=== PATIENT | male | born 1955 | race Caucasian/White ===

== ENCOUNTER 2022-11-26 16:26 | Inpatient (IN) | payer MEDICARE, BC ==
[2022-11-26] MEDS ORDERED: Dextrose 5% in Water 1,000 ML IV PRN (19:27)
[2022-11-26] MEDS ORDERED: Dextrose 50% Abboject 50 ML SYRINGE SLOW IVP PRN (19:27)
[2022-11-26] MEDS ORDERED: Ondansetron PF 4 MG/2 ML Vial IVP PRN (19:47)
[2022-11-26] MEDS ORDERED: Ondansetron ODT 4 MG TAB PO PRN (19:47)
[2022-11-26] MEDS ORDERED: Senokot S 8.6-50 MG TAB PO PRN (19:47)
[2022-11-26] MEDS ORDERED: niCARdipine 25 MG in Sodium Chloride 0.9% 250 ML 250 ML IVPB PRN (20:00)
[2022-11-26] MEDS ORDERED: Electrolyte Replacement Protocol 1 EACH FS ONE (20:18)
[2022-11-26] MEDS ORDERED: Magnesium 2 GM/50 ML(in water) 2 GM in Premix Bag 1 BAG IVPB SCH (20:30)
[2022-11-26] MEDS ORDERED: Sodium Chloride 0.9% 1,000 ML IV SCH (20:30)
[2022-11-26] MEDS ORDERED: Electrolyte Replacement Protocol FS PRN (20:45)
[2022-11-26] MEDS: methylPREDNISolone Sod Succ 1 GM, Admixture Fee 1 EACH in Sodium Chloride 0.9% 250 ML 2... IVPB SCH ×2 (21:20→21:53)
[2022-11-27] MEDS: Cefepime 2 GM in Sodium Chloride 0.9% 100 ML IVPB SCH ×2 (01:38→12:53)
[2022-11-27] MEDS: Vancomycin 1 GM in Premix Bag 1 BAG IVPB SCH ×2 (01:44→14:00)
[2022-11-27 03:57] LABS: Bacteria/HPF None Seen HPF (None Seen); Bilirubin Negative (Negative); Blood, Urine 3+ (Negative); CAUTI Indications for Culture Alt mental st,lethar; Clarity Clear (Clear); Glucose, Urine (Dipstick) Greater than 1000 mg/dL (Negative); Ketone, Urine 20 mg/dL (Negative); Leukocyte Negative Leu/uL (Negative); Nitrite Negative (Negative); Protein, Urine (Dipstick) 10 mg/dL (Neg-Trace); RBC/HPF Greater than 50 HPF (0-3); Specific Gravity, Urine 1.017 (1.002-1.036); Squamous Epithelial None Seen HPF (0-3); Urobilinogen Normal mg/dL (Less than 2); WBC/HPF 0-3 HPF (0-3); pH, Urine 5.5 (5.0-9.0)
[2022-11-27 04:02] LABS: Urine Culture Reflex No No
[2022-11-27 04:30] LABS: ALT (SGPT) 17 U/L (8-55); AST (SGOT) 25 U/L (5-34); Albumin 3.6 g/dL (3.4-4.8); Alkaline Phosphatase 63 U/L (40-110); Anion Gap 14 mmol/L (10-20); BUN (Urea Nitrogen) 13 mg/dL (8.4-25.7); Bilirubin, Direct 1.5 mg/dL (0.1-0.3); Bilirubin, Total 4.6 mg/dL (0.2-1.2); Calc. Creatinine Clearance 72 mL/min (70-130); Calcium 9.1 mg/dL (7.8-10.44); Carbon Dioxide 21 mmol/L (23-31); Chloride 103 mmol/L (98-107); Estimated GFR 96; Globulin 4.4 g/dL (2.4-3.5); Glucose 258 mg/dL (80-115); Magnesium 2.2 mg/dL (1.6-2.6); Potassium 3.7 mmol/L (3.5-5.1); Sodium 134 mmol/L (136-145)
[2022-11-27 04:39] LABS: #Lymphocytes 0.5 thou/uL (1.20-3.40); #Monocytes 0.3 thou/uL (0.11-0.59); #Neutrophils 6.6 thou/uL (1.40-6.50); %Lymphocytes 7.2 % (21.0-51.0); %Monocytes 3.9 % (0.0-10.0); %Neutrophils 88.8 % (42.0-75.0); Hemoglobin 12.4 g/dL (14.0-18.0); Mean Corpuscular HGB CONC 34.3 g/dL (32.0-36.0); Mean Corpuscular Hemoglobin 29.8 pg (27.0-31.0); Mean Corpuscular Volume 86.8 fl (78.0-98.0); Mean Platelet Volume 9.2 fL (7.4-10.4); Platelet Count 63 10x3/uL (130-400); Platelet Morphology Comment Appears Decreased; RBC Distribution Width 11.7 % (11.5-14.5); RBC Morphology Normal; Red Blood Cell (RBC) Count 4.15 mill/uL (4.70-6.10); White Blood Cell (WBC) Count 7.5 10x3/uL (4.8-10.8)
[2022-11-27] MEDS: HumaLOG 300 UNITS/3 ML VIAL SC PRN ×4 (06:11→20:29)
[2022-11-27] MEDS ORDERED: ADMIXTURE FEE IVPB SCH (09:00)
[2022-11-27] MEDS ORDERED: PRIVIGEN IVPB SCH (09:00)
[2022-11-27] MEDS ORDERED: OCTAGAM 10% (10 GM/100 ML VIAL) IVPB SCH (09:00)
[2022-11-27] MEDS: Pantoprazole 40 MG VIAL IVP SCH (09:31)
[2022-11-27] MEDS: PRIVIGEN IVPB SCH (18:00)
[2022-11-27] MEDS: ADMIXTURE FEE IVPB SCH (18:00)
[2022-11-27] MEDS: methylPREDNISolone Sod Succ 1 GM, Admixture Fee 1 EACH in Sodium Chloride 0.9% 250 ML 2... IVPB SCH (20:25)
[2022-11-27 21:33] LABS: #Basophils 0.2 thou/uL (0.0-0.2); #Lymphocytes 0.6 thou/uL (1.20-3.40); #Monocytes 1.1 thou/uL (0.11-0.59); #Neutrophils 9.9 thou/uL (1.40-6.50); %Basophils 1.4 % (0.0-1.0); %Eosinophils 0.1 % (0.0-10.0); %Lymphocytes 4.7 % (21.0-51.0); %Monocytes 9.2 % (0.0-10.0); %Neutrophils 84.6 % (42.0-75.0); Hemoglobin 12.3 g/dL (14.0-18.0); Mean Corpuscular HGB CONC 34.6 g/dL (32.0-36.0); Mean Corpuscular Hemoglobin 31.2 pg (27.0-31.0); Mean Corpuscular Volume 89.9 fl (78.0-98.0); Mean Platelet Volume 10.2 fL (7.4-10.4); Platelet Count 73 10x3/uL (130-400); RBC Distribution Width 11.9 % (11.5-14.5); Red Blood Cell (RBC) Count 3.93 mill/uL (4.70-6.10); White Blood Cell (WBC) Count 11.6 10x3/uL (4.8-10.8)
[2022-11-28] MEDS: Cefepime 2 GM in Sodium Chloride 0.9% 100 ML IVPB SCH ×2 (01:16→13:26)
[2022-11-28 02:42] LABS: ALT (SGPT) 22 U/L (8-55); AST (SGOT) 38 U/L (5-34); Albumin 3.1 g/dL (3.4-4.8); Alkaline Phosphatase 55 U/L (40-110); Anion Gap 16 mmol/L (10-20); BUN (Urea Nitrogen) 16 mg/dL (8.4-25.7); Bilirubin, Total 2.6 mg/dL (0.2-1.2); Calc. Creatinine Clearance 78 mL/min (70-130); Calcium 8.2 mg/dL (7.8-10.44); Carbon Dioxide 18 mmol/L (23-31); Chloride 107 mmol/L (98-107); Estimated GFR 98; Globulin 4.1 g/dL (2.4-3.5); Glucose 166 mg/dL (80-115); Potassium 3.6 mmol/L (3.5-5.1); Protein, Total 7.2 g/dL (5.8-8.1); Sodium 137 mmol/L (136-145)
[2022-11-28] MEDS: Vancomycin 1 GM in Premix Bag 1 BAG IVPB SCH (02:58)
[2022-11-28 03:10] LABS: HIV (1/2) Antibody/Antigen Non-Reactive (NonReactive); HIV 1/2 INDEX 0.41 S/CO (<1.00)
[2022-11-28 03:42] LABS: Vancomycin, Trough 12.3 ug/mL
[2022-11-28] MEDS ORDERED: VANCOMYCIN 1.25 GM/250 ML BAG 1.25 GM in Premix Bag 1 BAG IVPB SCH ×2 (05:00→14:00)
[2022-11-28 06:43] LABS: #Lymphocytes 0.6 thou/uL (1.20-3.40); #Monocytes 0.4 thou/uL (0.11-0.59); #Neutrophils 8.1 thou/uL (1.40-6.50); %Eosinophils 0.1 % (0.0-10.0); %Lymphocytes 6.2 % (21.0-51.0); %Monocytes 4.9 % (0.0-10.0); %Neutrophils 88.8 % (42.0-75.0); Hemoglobin 12.1 g/dL (14.0-18.0); Mean Corpuscular HGB CONC 34.3 g/dL (32.0-36.0); Mean Corpuscular Hemoglobin 30.9 pg (27.0-31.0); Mean Corpuscular Volume 90.1 fl (78.0-98.0); Mean Platelet Volume 11.3 fL (7.4-10.4); Platelet Count 65 10x3/uL (130-400); RBC Distribution Width 11.8 % (11.5-14.5); Red Blood Cell (RBC) Count 3.93 mill/uL (4.70-6.10); White Blood Cell (WBC) Count 9.1 10x3/uL (4.8-10.8)
[2022-11-28] MEDS: HumaLOG 300 UNITS/3 ML VIAL SC PRN ×3 (08:14→17:52)
[2022-11-28] MEDS: Pantoprazole 40 MG VIAL IVP SCH (08:15)
[2022-11-28] MEDS: Guaifenesin DM 100-10/5 ML UDCUP PO PRN ×2 (08:15→15:46)
[2022-11-28] MEDS: PRIVIGEN IVPB SCH (21:05)
[2022-11-28] MEDS: ADMIXTURE FEE IVPB SCH (21:05)
[2022-11-28] MEDS: methylPREDNISolone Sod Succ 1 GM, Admixture Fee 1 EACH in Sodium Chloride 0.9% 250 ML 2... IVPB SCH (21:05)
[2022-11-29] MEDS: Guaifenesin DM 100-10/5 ML UDCUP PO PRN ×2 (00:04→11:42)
[2022-11-29] MEDS: HumaLOG 300 UNITS/3 ML VIAL SC PRN ×2 (00:11→06:49)
[2022-11-29 07:09] LABS: #Lymphocytes 0.4 thou/uL (1.20-3.40); #Monocytes 0.2 thou/uL (0.11-0.59); #Neutrophils 6.9 thou/uL (1.40-6.50); %Basophils 0.5 % (0.0-1.0); %Eosinophils 0.2 % (0.0-10.0); %Lymphocytes 4.7 % (21.0-51.0); %Monocytes 3.2 % (0.0-10.0); %Neutrophils 91.3 % (42.0-75.0); Hemoglobin 10.6 g/dL (14.0-18.0); Mean Corpuscular HGB CONC 35.3 g/dL (32.0-36.0); Mean Corpuscular Hemoglobin 30.9 pg (27.0-31.0); Mean Corpuscular Volume 87.5 fl (78.0-98.0); Mean Platelet Volume 11.2 fL (7.4-10.4); Platelet Count 50 10x3/uL (130-400); RBC Distribution Width 11.5 % (11.5-14.5); Red Blood Cell (RBC) Count 3.44 mill/uL (4.70-6.10); White Blood Cell (WBC) Count 7.5 10x3/uL (4.8-10.8)
[2022-11-29 07:23] LABS: ALT (SGPT) 35 U/L (8-55); AST (SGOT) 44 U/L (5-34); Alkaline Phosphatase 48 U/L (40-110); Anion Gap 11 mmol/L (10-20); BUN (Urea Nitrogen) 25 mg/dL (8.4-25.7); Bilirubin, Total 1.5 mg/dL (0.2-1.2); Calc. Creatinine Clearance 79 mL/min (70-130); Calcium 8.1 mg/dL (7.8-10.44); Carbon Dioxide 20 mmol/L (23-31); Chloride 109 mmol/L (98-107); Estimated GFR 99; Globulin 5.5 g/dL (2.4-3.5); Glucose 179 mg/dL (80-115); Potassium 3.5 mmol/L (3.5-5.1); Protein, Total 8.5 g/dL (5.8-8.1); Sodium 136 mmol/L (136-145)
[2022-11-29] MEDS ORDERED: Potassium Chloride 20 MEQ TAB PO SCH (08:00)
[2022-11-29] MEDS: Carvedilol 25 MG TAB PO SCH (08:54)
[2022-11-29] MEDS: Pantoprazole 40 MG VIAL IVP SCH (08:55)
[2022-11-29] MEDS: methylPREDNISolone Sod Succ 1 GM, Admixture Fee 1 EACH in Sodium Chloride 0.9% 250 ML 2... IVPB SCH (20:51)
[2022-11-30 07:07] LABS: #Lymphocytes 0.4 thou/uL (1.20-3.40); #Monocytes 0.2 thou/uL (0.11-0.59); #Neutrophils 3.9 thou/uL (1.40-6.50); %Basophils 0.3 % (0.0-1.0); %Lymphocytes 8.3 % (21.0-51.0); %Monocytes 3.4 % (0.0-10.0); Hemoglobin 11.3 g/dL (14.0-18.0); Mean Corpuscular HGB CONC 34.1 g/dL (32.0-36.0); Mean Corpuscular Volume 88.1 fl (78.0-98.0); Mean Platelet Volume 11.4 fL (7.4-10.4); Platelet Count 26 10x3/uL (130-400); RBC Distribution Width 11.6 % (11.5-14.5); Red Blood Cell (RBC) Count 3.78 mill/uL (4.70-6.10); White Blood Cell (WBC) Count 4.4 10x3/uL (4.8-10.8)
[2022-11-30 07:19] LABS: ALT (SGPT) 40 U/L (8-55); AST (SGOT) 33 U/L (5-34); Alkaline Phosphatase 44 U/L (40-110); Anion Gap 9 mmol/L (10-20); BUN (Urea Nitrogen) 34 mg/dL (8.4-25.7); Bilirubin, Total 1.7 mg/dL (0.2-1.2); Calc. Creatinine Clearance 82 mL/min (70-130); Calcium 8.3 mg/dL (7.8-10.44); Carbon Dioxide 24 mmol/L (23-31); Chloride 109 mmol/L (98-107); Estimated GFR 100; Globulin 5.1 g/dL (2.4-3.5); Glucose 216 mg/dL (80-115); Potassium 3.9 mmol/L (3.5-5.1); Protein, Total 8.1 g/dL (5.8-8.1); Sodium 138 mmol/L (136-145)
[2022-11-30] MEDS: HumaLOG 300 UNITS/3 ML VIAL SC PRN ×2 (07:57→18:34)
[2022-11-30] MEDS ORDERED: Magnesium 2 GM/50 ML(in water) 2 GM in Premix Bag 1 BAG IVPB SCH (09:00)
[2022-11-30] MEDS: Carvedilol 25 MG TAB PO SCH (09:13)
[2022-11-30] MEDS: Pantoprazole 40 MG VIAL IVP SCH (09:13)
[2022-11-30 17:00] LABS: Hemoglobin 11.7 g/dL (14.0-18.0); Mean Corpuscular HGB CONC 34.2 g/dL (32.0-36.0); Mean Corpuscular Volume 87.8 fl (78.0-98.0); Platelet Count 20 10x3/uL (130-400); RBC Distribution Width 11.5 % (11.5-14.5); White Blood Cell (WBC) Count 4.4 10x3/uL (4.8-10.8)
[2022-11-30] MEDS: Rosuvastatin 20 MG TAB PO SCH (21:52)
[2022-12-01 01:16] LABS: #Lymphocytes 0.4 thou/uL (1.20-3.40); #Monocytes 0.7 thou/uL (0.11-0.59); #Neutrophils 7.2 thou/uL (1.40-6.50); %Basophils 0.2 % (0.0-1.0); %Lymphocytes 5.1 % (21.0-51.0); %Monocytes 8.4 % (0.0-10.0); %Neutrophils 86.3 % (42.0-75.0); Hemoglobin 12.2 g/dL (14.0-18.0); Mean Corpuscular HGB CONC 36.8 g/dL (32.0-36.0); Mean Corpuscular Hemoglobin 32.4 pg (27.0-31.0); Mean Corpuscular Volume 88.1 fl (78.0-98.0); Mean Platelet Volume 10.1 fL (7.4-10.4); Platelet Count 36 10x3/uL (130-400); RBC Distribution Width 11.4 % (11.5-14.5); Red Blood Cell (RBC) Count 3.78 mill/uL (4.70-6.10); White Blood Cell (WBC) Count 8.3 10x3/uL (4.8-10.8)
[2022-12-01] MEDS: HumaLOG 300 UNITS/3 ML VIAL SC PRN ×2 (06:03→12:37)
[2022-12-01 07:12] LABS: #Lymphocytes 0.5 thou/uL (1.20-3.40); #Monocytes 0.6 thou/uL (0.11-0.59); #Neutrophils 6.1 thou/uL (1.40-6.50); %Lymphocytes 7.1 % (21.0-51.0); %Monocytes 7.9 % (0.0-10.0); %Neutrophils 84.9 % (42.0-75.0); Hemoglobin 11.7 g/dL (14.0-18.0); Mean Corpuscular HGB CONC 34.1 g/dL (32.0-36.0); Mean Corpuscular Hemoglobin 29.9 pg (27.0-31.0); Mean Corpuscular Volume 87.8 fl (78.0-98.0); Mean Platelet Volume 12.2 fL (7.4-10.4); Platelet Count 25 10x3/uL (130-400); RBC Distribution Width 11.5 % (11.5-14.5); White Blood Cell (WBC) Count 7.2 10x3/uL (4.8-10.8)
[2022-12-01 07:26] LABS: ALT (SGPT) 32 U/L (8-55); AST (SGOT) 22 U/L (5-34); Alkaline Phosphatase 44 U/L (40-110); Anion Gap 11 mmol/L (10-20); BUN (Urea Nitrogen) 35 mg/dL (8.4-25.7); Bilirubin, Total 1.6 mg/dL (0.2-1.2); Calc. Creatinine Clearance 93 mL/min (70-130); Calcium 8.2 mg/dL (7.8-10.44); Carbon Dioxide 25 mmol/L (23-31); Chloride 106 mmol/L (98-107); Estimated GFR 104; Globulin 4.8 g/dL (2.4-3.5); Glucose 177 mg/dL (80-115); Magnesium 2.2 mg/dL (1.6-2.6); Potassium 3.5 mmol/L (3.5-5.1); Protein, Total 7.8 g/dL (5.8-8.1); Sodium 138 mmol/L (136-145)
[2022-12-01] MEDS ORDERED: Tamsulosin HCl 0.4 MG CAP PO SCH (09:00)
[2022-12-01] MEDS ORDERED: Non-Formulary Item 1 EACH (Vortioxetine Hydrobromide [Trintellix] 20 MG Tablet) PO SCH (09:00)
[2022-12-01] MEDS ORDERED: Aripiprazole 10 MG TAB PO SCH ×2 (09:00)
[2022-12-01] MEDS: Carvedilol 25 MG TAB PO SCH (10:42)
[2022-12-01] MEDS ORDERED: Potassium Chloride 20 MEQ TAB PO SCH (12:00)
[2022-12-01] MEDS ORDERED: Amlodipine 5 MG TAB PO SCH ×2 (18:00)
[2022-12-01] MEDS: Rosuvastatin 20 MG TAB PO SCH (21:53)
[2022-12-02 06:31] LABS: #Monocytes 1.4 thou/uL (0.11-0.59); %Basophils 0.1 % (0.0-1.0); %Eosinophils 0.2 % (0.0-10.0); %Lymphocytes 8.2 % (21.0-51.0); %Monocytes 11.1 % (0.0-10.0); %Neutrophils 80.4 % (42.0-75.0); Hemoglobin 14.5 g/dL (14.0-18.0); Mean Corpuscular HGB CONC 34.1 g/dL (32.0-36.0); Mean Corpuscular Hemoglobin 29.6 pg (27.0-31.0); Mean Corpuscular Volume 86.9 fl (78.0-98.0); Mean Platelet Volume 15.5 fL (7.4-10.4); Platelet Count 6 10x3/uL (130-400); RBC Distribution Width 11.8 % (11.5-14.5); Red Blood Cell (RBC) Count 4.89 mill/uL (4.70-6.10); White Blood Cell (WBC) Count 12.4 10x3/uL (4.8-10.8)
[2022-12-02 06:38] LABS: ALT (SGPT) 30 U/L (8-55); AST (SGOT) 29 U/L (5-34); Albumin 3.1 g/dL (3.4-4.8); Alkaline Phosphatase 48 U/L (40-110); Anion Gap 10 mmol/L (10-20); BUN (Urea Nitrogen) 25 mg/dL (8.4-25.7); Bilirubin, Total 2.1 mg/dL (0.2-1.2); Calc. Creatinine Clearance 91 mL/min (70-130); Calcium 8.2 mg/dL (7.8-10.44); Carbon Dioxide 25 mmol/L (23-31); Chloride 103 mmol/L (98-107); Estimated GFR 103; Globulin 4.7 g/dL (2.4-3.5); Glucose 164 mg/dL (80-115); Potassium 3.5 mmol/L (3.5-5.1); Protein, Total 7.8 g/dL (5.8-8.1); Sodium 134 mmol/L (136-145)
[2022-12-02] MEDS: Carvedilol 25 MG TAB PO SCH (07:54)
[2022-12-02] MEDS ORDERED: hydrALAZINE 10 MG TAB PO PRN (07:55)
[2022-12-02] MEDS: NIFEdipine XL 60 MG TAB PO SCH (08:43)
[2022-12-02] MEDS ORDERED: Losartan 25 MG TAB PO SCH (09:00)
[2022-12-02] MEDS ORDERED: Potassium Chloride 20 MEQ TAB PO SCH (09:00)
[2022-12-02] MEDS ORDERED: NIFEdipine XL 60 MG TAB PO SCH (09:00)
[2022-12-02] MEDS ORDERED: Dexamethasone 4 MG TAB PO SCH (10:30)
[2022-12-02 13:55] LABS: #Lymphocytes 0.7 thou/uL (1.20-3.40); #Monocytes 0.4 thou/uL (0.11-0.59); #Neutrophils 10.2 thou/uL (1.40-6.50); %Basophils 0.1 % (0.0-1.0); %Eosinophils 0.2 % (0.0-10.0); %Lymphocytes 6.1 % (21.0-51.0); %Monocytes 3.8 % (0.0-10.0); %Neutrophils 89.9 % (42.0-75.0); Mean Corpuscular HGB CONC 33.5 g/dL (32.0-36.0); Mean Corpuscular Hemoglobin 28.7 pg (27.0-31.0); Mean Corpuscular Volume 85.5 fl (78.0-98.0); Mean Platelet Volume 9.9 fL (7.4-10.4); Platelet Count 41 10x3/uL (130-400); RBC Distribution Width 11.9 % (11.5-14.5); Red Blood Cell (RBC) Count 4.87 mill/uL (4.70-6.10); White Blood Cell (WBC) Count 11.3 10x3/uL (4.8-10.8)
[2022-12-02] MEDS: Rosuvastatin 20 MG TAB PO SCH (20:39)
[2022-12-03] MEDS: HumaLOG 300 UNITS/3 ML VIAL SC PRN ×4 (00:46→18:20)
[2022-12-03] MEDS: NIFEdipine XL 60 MG TAB PO SCH (08:29)
[2022-12-03] MEDS: Dexamethasone 4 MG TAB PO SCH (08:29)
[2022-12-03] MEDS: Carvedilol 25 MG TAB PO SCH (08:29)
[2022-12-03] MEDS: Acetaminophen 325 MG TAB PO PRN ×2 (08:30→20:31)
[2022-12-03 09:07] LABS: Anion Gap 12 mmol/L (10-20); BUN (Urea Nitrogen) 31 mg/dL (8.4-25.7); Calc. Creatinine Clearance 80 mL/min (70-130); Calcium 8.5 mg/dL (7.8-10.44); Carbon Dioxide 24 mmol/L (23-31); Chloride 101 mmol/L (98-107); Estimated GFR 99; Glucose 170 mg/dL (80-115); Phosphorus 2.7 mg/dL (2.3-4.7); Sodium 133 mmol/L (136-145)
[2022-12-03 09:15] LABS: #Lymphocytes 0.9 thou/uL (1.20-3.40); #Monocytes 1.1 thou/uL (0.11-0.59); #Neutrophils 9.7 thou/uL (1.40-6.50); %Basophils 0.1 % (0.0-1.0); %Eosinophils 0.1 % (0.0-10.0); %Lymphocytes 7.5 % (21.0-51.0); %Monocytes 9.3 % (0.0-10.0); Hemoglobin 14.9 g/dL (14.0-18.0); Mean Corpuscular Hemoglobin 29.3 pg (27.0-31.0); Mean Corpuscular Volume 86.1 fl (78.0-98.0); Mean Platelet Volume 15.6 fL (7.4-10.4); Platelet Count 8 10x3/uL (130-400); RBC Distribution Width 12.2 % (11.5-14.5); Red Blood Cell (RBC) Count 5.08 mill/uL (4.70-6.10); White Blood Cell (WBC) Count 11.7 10x3/uL (4.8-10.8)
[2022-12-03] MEDS ORDERED: Magnesium 2 GM/50 ML(in water) 2 GM in Premix Bag 1 BAG IVPB SCH (09:45)
[2022-12-03] MEDS ORDERED: Aripiprazole 10 MG TAB PO SCH (10:30)
[2022-12-03] MEDS ORDERED: ROMIPLOSTIM SQ SCH (12:00)
[2022-12-03] MEDS ORDERED: STERILE WATER SQ SCH (12:00)
[2022-12-03 17:27] LABS: Bacteria/HPF None Seen HPF (None Seen); Bilirubin Negative (Negative); Blood, Urine 3+ (Negative); CAUTI Indications for Culture Alt mental st,lethar; Clarity Clear (Clear); Glucose, Urine (Dipstick) 200 mg/dL (Negative); Ketone, Urine Trace mg/dL (Negative); Leukocyte Negative Leu/uL (Negative); Nitrite Negative (Negative); Protein, Urine (Dipstick) 20 mg/dL (Neg-Trace); RBC/HPF 21-50 HPF (0-3); Specific Gravity, Urine 1.023 (1.002-1.036); Squamous Epithelial None Seen HPF (0-3); Urobilinogen Normal mg/dL (Less than 2)
[2022-12-03 17:31] LABS: Urine Culture Reflex No No
[2022-12-03] MEDS: Rosuvastatin 20 MG TAB PO SCH (20:31)
[2022-12-04 06:40] LABS: #Monocytes 1.2 thou/uL (0.11-0.59); #Neutrophils 10.3 thou/uL (1.40-6.50); %Basophils 0.3 % (0.0-1.0); %Eosinophils 0.1 % (0.0-10.0); %Monocytes 9.5 % (0.0-10.0); %Neutrophils 82.1 % (42.0-75.0); Hemoglobin 13.2 g/dL (14.0-18.0); Mean Corpuscular HGB CONC 33.9 g/dL (32.0-36.0); Mean Corpuscular Hemoglobin 29.2 pg (27.0-31.0); Mean Corpuscular Volume 86.1 fl (78.0-98.0); Mean Platelet Volume 16.2 fL (7.4-10.4); Platelet Count 6 10x3/uL (130-400); RBC Distribution Width 12.2 % (11.5-14.5); Red Blood Cell (RBC) Count 4.52 mill/uL (4.70-6.10); White Blood Cell (WBC) Count 12.5 10x3/uL (4.8-10.8)
[2022-12-04 06:57] LABS: Anion Gap 9 mmol/L (10-20); BUN (Urea Nitrogen) 34 mg/dL (8.4-25.7); Calc. Creatinine Clearance 83 mL/min (70-130); Calcium 8.1 mg/dL (7.8-10.44); Carbon Dioxide 23 mmol/L (23-31); Chloride 104 mmol/L (98-107); Estimated GFR 100; Glucose 146 mg/dL (80-115); Potassium 4.1 mmol/L (3.5-5.1); Sodium 132 mmol/L (136-145)
[2022-12-04] MEDS: Dexamethasone 4 MG TAB PO SCH (11:59)
[2022-12-04] MEDS: Carvedilol 25 MG TAB PO SCH ×3 (12:00→17:52)
[2022-12-04] MEDS: Aripiprazole 10 MG TAB PO SCH (12:00)
[2022-12-04] MEDS ORDERED: Cefepime 2 GM in Sodium Chloride 0.9% 100 ML IVPB SCH (16:00)
[2022-12-04] MEDS: Acetaminophen 325 MG TAB PO PRN (16:34)
[2022-12-04] MEDS ORDERED: hydrALAZINE 20 MG/ML VIAL SLOW IVP SCH (16:45)
[2022-12-04] MEDS ORDERED: Acetaminophen 650 MG Suppository PR PRN (16:45)
[2022-12-04] MEDS: NIFEdipine XL 30 MG TAB PO SCH (17:52)
[2022-12-04 18:25] LABS: #Lymphocytes 0.6 thou/uL (1.20-3.40); #Monocytes 0.3 thou/uL (0.11-0.59); #Neutrophils 12.9 thou/uL (1.40-6.50); %Basophils 0.1 % (0.0-1.0); %Eosinophils 0.1 % (0.0-10.0); %Lymphocytes 4.5 % (21.0-51.0); %Monocytes 2.2 % (0.0-10.0); %Neutrophils 93.2 % (42.0-75.0); Hemoglobin 13.9 g/dL (14.0-18.0); Mean Corpuscular HGB CONC 35.3 g/dL (32.0-36.0); Mean Corpuscular Hemoglobin 29.6 pg (27.0-31.0); Mean Corpuscular Volume 83.7 fl (78.0-98.0); Mean Platelet Volume 15.1 fL (7.4-10.4); Platelet Count 10 10x3/uL (130-400); RBC Distribution Width 12.4 % (11.5-14.5); Red Blood Cell (RBC) Count 4.69 mill/uL (4.70-6.10); White Blood Cell (WBC) Count 13.8 10x3/uL (4.8-10.8)
[2022-12-04] MEDS: Rosuvastatin 20 MG TAB PO SCH (21:04)
[2022-12-04] MEDS: Doxycycline 100 MG in Sodium Chloride 0.9% 100 ML IVPB SCH (21:07)
[2022-12-04] MEDS: metroNIDAZOLE 500 MG in Premix Bag 1 BAG IVPB SCH (22:48)
[2022-12-05] MEDS: Cefepime 2 GM in Sodium Chloride 0.9% 100 ML IVPB SCH ×2 (04:04→16:49)
[2022-12-05] MEDS: metroNIDAZOLE 500 MG in Premix Bag 1 BAG IVPB SCH ×2 (05:30→16:47)
[2022-12-05 06:22] LABS: #Lymphocytes 0.7 thou/uL (1.20-3.40); #Monocytes 1.3 thou/uL (0.11-0.59); #Neutrophils 8.9 thou/uL (1.40-6.50); %Basophils 0.3 % (0.0-1.0); %Lymphocytes 6.1 % (21.0-51.0); %Monocytes 11.9 % (0.0-10.0); %Neutrophils 81.7 % (42.0-75.0); ALT (SGPT) 27 U/L (8-55); AST (SGOT) 27 U/L (5-34); Albumin 3.5 g/dL (3.4-4.8); Alkaline Phosphatase 55 U/L (40-110); Anion Gap 11 mmol/L (10-20); BUN (Urea Nitrogen) 29 mg/dL (8.4-25.7); Bilirubin, Total 2.3 mg/dL (0.2-1.2); Calc. Creatinine Clearance 86 mL/min (70-130); Calcium 8.3 mg/dL (7.8-10.44); Carbon Dioxide 19 mmol/L (23-31); Chloride 106 mmol/L (98-107); Estimated GFR 101; Globulin 4.3 g/dL (2.4-3.5); Glucose 141 mg/dL (80-115); Hemoglobin 13.9 g/dL (14.0-18.0); Large Platelets SLIGHT; MDiff Complete? YES; Mean Corpuscular HGB CONC 35.1 g/dL (32.0-36.0); Mean Corpuscular Hemoglobin 29.8 pg (27.0-31.0); Mean Corpuscular Volume 84.8 fl (78.0-98.0); Mean Platelet Volume 18.9 fL (7.4-10.4); Platelet Count 2 10x3/uL (130-400); Platelet Morphology Comment Appears Decreased; Potassium 4.4 mmol/L (3.5-5.1); Protein, Total 7.8 g/dL (5.8-8.1); RBC Distribution Width 12.5 % (11.5-14.5); Red Blood Cell (RBC) Count 4.67 mill/uL (4.70-6.10); Sodium 132 mmol/L (136-145); White Blood Cell (WBC) Count 10.9 10x3/uL (4.8-10.8)
[2022-12-05] MEDS ORDERED: OCTAGAM 10% (10 GM/100 ML VIAL) IVPB SCH (09:00)
[2022-12-05] MEDS: Carvedilol 25 MG TAB PO SCH (11:27)
[2022-12-05] MEDS: Aripiprazole 10 MG TAB PO SCH (11:27)
[2022-12-05] MEDS: Dexamethasone 4 MG TAB PO SCH (11:27)
[2022-12-05] MEDS: NIFEdipine XL 30 MG TAB PO SCH (11:28)
[2022-12-05] MEDS: Doxycycline 100 MG in Sodium Chloride 0.9% 100 ML IVPB SCH (11:28)
[2022-12-05 12:03] VITALS: BP 153/91
[2022-12-05] MEDS: PRIVIGEN IVPB SCH (14:20)
[2022-12-05] MEDS: ADMIXTURE FEE IVPB SCH (14:20)
[2022-12-05] MEDS: Rosuvastatin 20 MG TAB PO SCH (20:03)
[2022-12-06 04:23] LABS: #Lymphocytes 0.9 thou/uL (1.20-3.40); #Monocytes 1.3 thou/uL (0.11-0.59); #Neutrophils 8.4 thou/uL (1.40-6.50); %Lymphocytes 8.9 % (21.0-51.0); %Monocytes 12.2 % (0.0-10.0); %Neutrophils 78.9 % (42.0-75.0); Hemoglobin 13.1 g/dL (14.0-18.0); Mean Corpuscular HGB CONC 35.8 g/dL (32.0-36.0); Mean Corpuscular Hemoglobin 30.3 pg (27.0-31.0); Mean Corpuscular Volume 84.7 fl (78.0-98.0); Platelet Count 49 10x3/uL (130-400); RBC Distribution Width 12.4 % (11.5-14.5); Red Blood Cell (RBC) Count 4.32 mill/uL (4.70-6.10); White Blood Cell (WBC) Count 10.6 10x3/uL (4.8-10.8)
[2022-12-06] MEDS ORDERED: levETIRAcetam 500 MG/5 ML VIAL SLOW IVP SCH ×3 (12:00→21:00)
[2022-12-06] MEDS: Aripiprazole 10 MG TAB PO SCH (12:59)
[2022-12-06] MEDS: NIFEdipine XL 30 MG TAB PO SCH (12:59)
[2022-12-06] MEDS: Carvedilol 25 MG TAB PO SCH (12:59)
[2022-12-06 13:08] LABS: Hemoglobin 15.4 g/dL (14.0-18.0); Mean Corpuscular HGB CONC 33.7 g/dL (32.0-36.0); Mean Corpuscular Volume 86.1 fl (78.0-98.0); Mean Platelet Volume 11.9 fL (7.4-10.4); Platelet Count 81 10x3/uL (130-400); RBC Distribution Width 12.9 % (11.5-14.5); Red Blood Cell (RBC) Count 5.32 mill/uL (4.70-6.10); White Blood Cell (WBC) Count 16.9 10x3/uL (4.8-10.8)
[2022-12-06] MEDS: ADMIXTURE FEE IVPB SCH (13:08)
[2022-12-06] MEDS: PRIVIGEN IVPB SCH (13:08)
[2022-12-06] MEDS ORDERED: Lorazepam 2 MG/ML VIAL SLOW IVP SCH (13:45)
[2022-12-06] MEDS ORDERED: Lacosamide 400 MG in Sodium Chloride 0.9% 50 ML IVPB SCH (13:45)
[2022-12-06] MEDS ORDERED: Sodium Chloride 0.9% 1,000 ML IV SCH (14:15)
[2022-12-06 14:35] VITALS: BMI 17.4
[2022-12-06 14:43] LABS: Anion Gap 13 mmol/L (10-20); BUN (Urea Nitrogen) 31 mg/dL (8.4-25.7); CK (CPK) 131 U/L (30-200); Calc. Creatinine Clearance 62 mL/min (70-130); Calcium 8.4 mg/dL (7.8-10.44); Carbon Dioxide 19 mmol/L (23-31); Chloride 101 mmol/L (98-107); Estimated GFR 96; Glucose 201 mg/dL (80-115); Magnesium 1.9 mg/dL (1.6-2.6); Potassium 3.8 mmol/L (3.5-5.1); Sodium 129 mmol/L (136-145)
[2022-12-06] MEDS ORDERED: Lorazepam 2 MG/ML VIAL SLOW IVP PRN (19:08)
[2022-12-06] MEDS: Rosuvastatin 20 MG TAB PO SCH (20:39)
[2022-12-06] MEDS ORDERED: Magnesium 2 GM/50 ML(in water) 2 GM in Premix Bag 1 BAG IVPB SCH (21:00)
[2022-12-06] MEDS ORDERED: Lacosamide 200 MG in Sodium Chloride 0.9% 50 ML IVPB SCH (21:00)
[2022-12-06 23:00] LABS: SARS-CoV-2 NAA Rapid Test Not Detected (NotDetected)
[2022-12-06 23:41] VITALS: TEMP 97.9
[2022-12-07 16:24] LABS: ANA Symphony (Qualitative) POSITIVE (Negative); ANA Symphony (Quantitative) 4.1 Ratio (< 0.7 Negative); EliA RAS New Method **** NEW METHOD ****; Rheumatoid Factor IgA Antibody 0.9 IU/mL (<14 Negative); Rheumatoid Factor IgM Antibody 0.6 IU/mL (<3.5 Negative); Scleroderma-70 IgG Antibody 2.3 EliAU/mL (<7 Negative); dsDNA IgG Antibody 5.2 IU/mL (<10 Negative)
== END 2022-12-07 00:25 | disposition short-term general hospital (02) | DRG 813 ==
LOC: CCU 16:26 → SURG B 11-28 16:36 → IMCU/EMU 12-05 13:50
PROVIDERS: ADMIT Internal Medicine; ATTEND Internal Medicine
PROC: 6A551Z2 Pheresis of Platelets, Multiple (ICD-10-PCS; principal; 2022-11-26)
PROC: 3E0334Z Introduction of Serum, Toxoid and Vaccine into Peripheral Vein, Percutaneous Approach (ICD-10-PCS; 2022-11-27)
PROC: 07DR3ZX Extraction of Iliac Bone Marrow, Percutaneous Approach, Diagnostic (ICD-10-PCS; 2022-12-02)
PROC: 079T3ZX Drainage of Bone Marrow, Percutaneous Approach, Diagnostic (ICD-10-PCS; 2022-12-02)
PROC: 0DH67UZ Insertion of Feeding Device into Stomach, Via Natural or Artificial Opening (ICD-10-PCS; 2022-12-06)
PROC: 3E0G76Z Introduction of Nutritional Substance into Upper GI, Via Natural or Artificial Opening (ICD-10-PCS; 2022-12-06)
DX: D69.3 Immune thrombocytopenic purpura (principal); I62.00 Nontraumatic subdural hemorrhage, unspecified; G93.6 Cerebral edema; E43 Unspecified severe protein-calorie malnutrition; G93.49 Other encephalopathy; Z68.1 Body mass index [BMI] 19.9 or less, adult; Z20.822 Contact with and (suspected) exposure to COVID-19; K21.9 Gastro-esophageal reflux disease without esophagitis; E83.42 Hypomagnesemia; E11.22 Type 2 diabetes mellitus with diabetic chronic kidney disease; N18.9 Chronic kidney disease, unspecified; I12.9 Hypertensive chronic kidney disease with stage 1 through stage 4 chronic kidney disease, or unspecified chronic kidney disease; F41.9 Anxiety disorder, unspecified; F32.A Depression, unspecified; E80.6 Other disorders of bilirubin metabolism; D72.829 Elevated white blood cell count, unspecified; T38.0X5A Adverse effect of glucocorticoids and synthetic analogues, initial encounter; R56.9 Unspecified convulsions; R33.9 Retention of urine, unspecified; Z79.899 Other long term (current) drug therapy; Z90.49 Acquired absence of other specified parts of digestive tract; Z83.3 Family history of diabetes mellitus; Z88.0 Allergy status to penicillin; Z88.1 Allergy status to other antibiotic agents; Z88.8 Allergy status to other drugs, medicaments and biological substances
CPT/HCPCS: 20225; 36415; 36416; 36430; 70450; 71045; 76700; 76770; 77012; 80048; 80053; 80076; 80202; 81001; 82247; 82550; 83010; 83520; 83605; 83615; 83735; 84100; 84145; 84484; 85025; 85060; 85097; 85384; 85610; 85730; 86038; 86225; 86235; 86850; 86900; 86901; 87040; 87077; 87149; 87389; 88184; 88237; 88264; 88280; 88305; 88311; 88313; 88341; 88342; 93005; 95712; 95816; 95819; 95957; 96365; 96366; 96375; C9113; C9254; J0360; J0692; J1459; J1568; J1815; J1953; J2060; J2796; J2930; J3370; J3370-JW; J3475; J3490; J7050; J8540; P9035; U0002

== ENCOUNTER 2022-12-13 18:04 | Inpatient (IN) | payer MEDICARE, BC ==
[2022-12-13 18:37] LABS: #Eosinphils 0.1 thou/uL (0.0-0.7); #Lymphocytes 1.4 thou/uL (1.20-3.40); #Monocytes 0.6 thou/uL (0.11-0.59); #Neutrophils 4.2 thou/uL (1.40-6.50); %Basophils 0.8 % (0.0-1.0); %Eosinophils 1.2 % (0.0-10.0); %Lymphocytes 21.9 % (21.0-51.0); %Monocytes 8.8 % (0.0-10.0); %Neutrophils 67.4 % (42.0-75.0); Mean Corpuscular HGB CONC 34.4 g/dL (32.0-36.0); Mean Corpuscular Hemoglobin 30.2 pg (27.0-31.0); Mean Corpuscular Volume 87.7 fl (78.0-98.0); Mean Platelet Volume 15.1 fL (7.4-10.4); Platelet Count 11 10x3/uL (130-400); RBC Distribution Width 13.3 % (11.5-14.5); Red Blood Cell (RBC) Count 4.31 mill/uL (4.70-6.10); White Blood Cell (WBC) Count 6.2 10x3/uL (4.8-10.8)
[2022-12-13 18:49] LABS: Prothrombin Time 13.5 sec (12.0-14.7)
[2022-12-13 18:55] LABS: ALT (SGPT) 22 U/L (8-55); AST (SGOT) 24 U/L (5-34); Albumin 3.1 g/dL (3.4-4.8); Alkaline Phosphatase 61 U/L (40-110); Anion Gap 14 mmol/L (10-20); BUN (Urea Nitrogen) 20 mg/dL (8.4-25.7); Bilirubin, Total 0.7 mg/dL (0.2-1.2); CK (CPK) 29 U/L (30-200); Calc. Creatinine Clearance 0 mL/min (70-130); Calcium 8.9 mg/dL (7.8-10.44); Carbon Dioxide 23 mmol/L (23-31); Chloride 100 mmol/L (98-107); Estimated GFR 100; Globulin 4.7 g/dL (2.4-3.5); Glucose 171 mg/dL (80-115); Potassium 4.7 mmol/L (3.5-5.1); Protein, Total 7.8 g/dL (5.8-8.1); Sodium 132 mmol/L (136-145)
[2022-12-13 20:17] LABS: Bilirubin Negative (Negative); Blood, Urine Negative (Negative); Clarity Clear (Clear); Glucose, Urine (Dipstick) Normal (Negative); Ketone, Urine Negative (Negative); Leukocyte Negative Leu/uL (Negative); Nitrite Negative (Negative); Protein, Urine (Dipstick) Negative (Neg-Trace); Specific Gravity, Urine 1.009 (1.002-1.036); Urobilinogen Normal mg/dL (Less than 2)
[2022-12-13] MEDS ORDERED: Dexamethasone 10 MG/ML VIAL ONE (21:07)
[2022-12-13] MEDS ORDERED: OCTAGAM 10% (10 GM/100 ML VIAL) IVPB SCH (21:30)
[2022-12-13] MEDS ORDERED: Ondansetron PF 4 MG/2 ML Vial IVP PRN (21:33)
[2022-12-13] MEDS ORDERED: Acetaminophen 325 MG TAB PO PRN (21:33)
[2022-12-13] MEDS ORDERED: Acetaminophen 650 MG Suppository PR PRN (21:33)
[2022-12-13] MEDS ORDERED: Senokot S 8.6-50 MG TAB PO SCH (22:15)
[2022-12-13] MEDS ORDERED: Fleet Enema 133 ML BOT PR SCH (22:15)
[2022-12-14 00:19] VITALS: BMI 19.5
[2022-12-14] MEDS ORDERED: Dexamethasone Sod Phosphate 40 MG in Sodium Chloride 0.9% 50 ML IVPB SCH ×2 (00:45→21:00)
[2022-12-14] MEDS: PRIVIGEN IVPB SCH (02:09)
[2022-12-14] MEDS: ADMIXTURE FEE IVPB SCH (02:09)
[2022-12-14 02:40] LABS: SARS-CoV-2 NAA Rapid Test Not Detected (NotDetected)
[2022-12-14 07:33] LABS: #Lymphocytes 0.8 thou/uL (1.20-3.40); #Monocytes 0.1 thou/uL (0.11-0.59); #Neutrophils 4.3 thou/uL (1.40-6.50); %Eosinophils 0.2 % (0.0-10.0); %Lymphocytes 14.8 % (21.0-51.0); %Monocytes 1.4 % (0.0-10.0); %Neutrophils 83.6 % (42.0-75.0); Hemoglobin 12.3 g/dL (14.0-18.0); Mean Corpuscular HGB CONC 33.8 g/dL (32.0-36.0); Mean Corpuscular Hemoglobin 29.8 pg (27.0-31.0); Mean Corpuscular Volume 88.3 fl (78.0-98.0); Mean Platelet Volume 10.4 fL (7.4-10.4); Platelet Count 39 10x3/uL (130-400); RBC Distribution Width 13.3 % (11.5-14.5); Red Blood Cell (RBC) Count 4.13 mill/uL (4.70-6.10); White Blood Cell (WBC) Count 5.1 10x3/uL (4.8-10.8)
[2022-12-14 07:35] LABS: Anion Gap 15 mmol/L (10-20); BUN (Urea Nitrogen) 19 mg/dL (8.4-25.7); Calc. Creatinine Clearance 77 mL/min (70-130); Calcium 9.1 mg/dL (7.8-10.44); Carbon Dioxide 22 mmol/L (23-31); Chloride 99 mmol/L (98-107); Estimated GFR 99; Glucose 187 mg/dL (80-115); Potassium 4.5 mmol/L (3.5-5.1); Sodium 131 mmol/L (136-145)
[2022-12-14] MEDS: Senokot S 8.6-50 MG TAB PO SCH ×2 (08:23→20:41)
[2022-12-14] MEDS: ALPRAZolam 0.5 MG TAB PO SCH (08:23)
[2022-12-14] MEDS: Aripiprazole 10 MG TAB PO SCH (08:23)
[2022-12-14] MEDS: Carvedilol 25 MG TAB PO SCH (08:23)
[2022-12-14] MEDS: Tamsulosin HCl 0.4 MG CAP PO SCH (08:24)
[2022-12-14] MEDS: Rosuvastatin 20 MG TAB PO SCH (08:24)
[2022-12-14 08:46] LABS: Reticulocyte Count 1.7 % (0.5-1.5)
[2022-12-14 08:52] LABS: Platelet Count 35 10x3/uL (130-400)
[2022-12-14] MEDS ORDERED: VORTIOXETINE HYDROBROMIDE 20 MG PO SCH (09:00)
[2022-12-14 09:10] LABS: Fibrinogen 511 mg/dL (253-463)
[2022-12-14 09:11] LABS: PTT 28.8 sec (22.9-36.1); Prothrombin Time 13.4 sec (12.0-14.7)
[2022-12-14 09:12] LABS: D-Dimer Test 1.25 *mcg/mL (0.27-0.43)
[2022-12-14] MEDS: ALPRAZolam 1 MG TAB PO SCH (20:41)
[2022-12-15 06:36] LABS: #Lymphocytes 0.6 thou/uL (1.20-3.40); #Monocytes 0.1 thou/uL (0.11-0.59); #Neutrophils 4.8 thou/uL (1.40-6.50); %Basophils 0.3 % (0.0-1.0); %Eosinophils 0.1 % (0.0-10.0); %Lymphocytes 11.1 % (21.0-51.0); %Monocytes 1.8 % (0.0-10.0); %Neutrophils 86.7 % (42.0-75.0); Hemoglobin 11.4 g/dL (14.0-18.0); Mean Corpuscular HGB CONC 34.6 g/dL (32.0-36.0); Mean Corpuscular Hemoglobin 30.6 pg (27.0-31.0); Mean Corpuscular Volume 88.5 fl (78.0-98.0); Mean Platelet Volume 12.2 fL (7.4-10.4); Platelet Count 31 10x3/uL (130-400); RBC Distribution Width 13.7 % (11.5-14.5); Red Blood Cell (RBC) Count 3.72 mill/uL (4.70-6.10); White Blood Cell (WBC) Count 5.5 10x3/uL (4.8-10.8)
[2022-12-15 06:57] LABS: Anion Gap 10 mmol/L (10-20); BUN (Urea Nitrogen) 19 mg/dL (8.4-25.7); Calc. Creatinine Clearance 81 mL/min (70-130); Calcium 8.8 mg/dL (7.8-10.44); Carbon Dioxide 25 mmol/L (23-31); Chloride 100 mmol/L (98-107); Estimated GFR 101; Glucose 182 mg/dL (80-115); Potassium 4.6 mmol/L (3.5-5.1); Sodium 130 mmol/L (136-145)
[2022-12-15] MEDS: ADMIXTURE FEE IVPB SCH (08:53)
[2022-12-15] MEDS: HYDROcodone/Acetaminophen 5/325 mg Tablet PO PRN ×2 (08:53→20:25)
[2022-12-15] MEDS: PRIVIGEN IVPB SCH (08:53)
[2022-12-15] MEDS: ALPRAZolam 0.5 MG TAB PO SCH (08:53)
[2022-12-15] MEDS: Tamsulosin HCl 0.4 MG CAP PO SCH (08:54)
[2022-12-15] MEDS: Carvedilol 25 MG TAB PO SCH (08:54)
[2022-12-15] MEDS: Rosuvastatin 20 MG TAB PO SCH (08:54)
[2022-12-15] MEDS: Senokot S 8.6-50 MG TAB PO SCH ×2 (08:54→20:25)
[2022-12-15] MEDS: Aripiprazole 10 MG TAB PO SCH (08:54)
[2022-12-15] MEDS ORDERED: STERILE WATER SQ SCH (12:00)
[2022-12-15] MEDS ORDERED: ROMIPLOSTIM SQ SCH (12:00)
[2022-12-15 15:05] LABS: Cardiolipin IgA Ab 0.5 APL-U/mL (<14 Negative); Cardiolipin IgG Ab 4.7 GPL-U/mL (<10 Negative); Cardiolipin IgM Ab 2.8 MPL-U/mL (<10 Negative); EliA APS New Method **** NEW METHOD ****; beta-2-Glycoprotein I IgA Ab 0.3 U/mL (<7 Negative); beta-2-Glycoprotein I IgG Ab 4.1 U/mL (<7 Negative)
[2022-12-15 15:27] LABS: beta-2-Glycoprotein I IgM Abs Less than 2.4 U/mL (<7 Negative)
[2022-12-15] MEDS ORDERED: Dexamethasone 4 MG TAB PO SCH (15:30)
[2022-12-15] MEDS: ALPRAZolam 1 MG TAB PO SCH (20:25)
[2022-12-16 07:21] LABS: #Lymphocytes 0.6 thou/uL (1.20-3.40); #Monocytes 0.2 thou/uL (0.11-0.59); #Neutrophils 5.4 thou/uL (1.40-6.50); %Basophils 0.8 % (0.0-1.0); %Eosinophils 0.1 % (0.0-10.0); %Monocytes 2.7 % (0.0-10.0); %Neutrophils 86.5 % (42.0-75.0); Hemoglobin 10.6 g/dL (14.0-18.0); Mean Corpuscular Volume 88.2 fl (78.0-98.0); Mean Platelet Volume 11.6 fL (7.4-10.4); Platelet Count 49 10x3/uL (130-400); RBC Distribution Width 13.5 % (11.5-14.5); Red Blood Cell (RBC) Count 3.54 mill/uL (4.70-6.10); White Blood Cell (WBC) Count 6.3 10x3/uL (4.8-10.8)
[2022-12-16 07:33] LABS: Anion Gap 12 mmol/L (10-20); BUN (Urea Nitrogen) 25 mg/dL (8.4-25.7); Calc. Creatinine Clearance 79 mL/min (70-130); Calcium 8.6 mg/dL (7.8-10.44); Carbon Dioxide 21 mmol/L (23-31); Chloride 97 mmol/L (98-107); Estimated GFR 100; Glucose 283 mg/dL (80-115); Potassium 4.4 mmol/L (3.5-5.1); Sodium 126 mmol/L (136-145)
[2022-12-16] MEDS: Dexamethasone 4 MG TAB PO SCH (08:20)
[2022-12-16] MEDS: Tamsulosin HCl 0.4 MG CAP PO SCH (08:21)
[2022-12-16] MEDS: Aripiprazole 10 MG TAB PO SCH (08:21)
[2022-12-16] MEDS: Carvedilol 25 MG TAB PO SCH (08:21)
[2022-12-16] MEDS: Rosuvastatin 20 MG TAB PO SCH (08:21)
[2022-12-16] MEDS: ALPRAZolam 0.5 MG TAB PO SCH (08:21)
[2022-12-16] MEDS: Senokot S 8.6-50 MG TAB PO SCH ×2 (08:21→19:39)
[2022-12-16] MEDS ORDERED: STERILE WATER SQ SCH (12:00)
[2022-12-16] MEDS ORDERED: ROMIPLOSTIM SQ SCH (12:00)
[2022-12-16] MEDS: ALPRAZolam 1 MG TAB PO SCH (19:38)
[2022-12-16] MEDS: HYDROcodone/Acetaminophen 5/325 mg Tablet PO PRN (19:39)
[2022-12-17 07:51] LABS: #Monocytes 0.6 thou/uL (0.11-0.59); %Eosinophils 0.2 % (0.0-10.0); %Lymphocytes 10.7 % (21.0-51.0); %Monocytes 6.2 % (0.0-10.0); %Neutrophils 82.9 % (42.0-75.0); Hemoglobin 10.6 g/dL (14.0-18.0); Mean Corpuscular HGB CONC 33.1 g/dL (32.0-36.0); Mean Corpuscular Hemoglobin 29.3 pg (27.0-31.0); Mean Corpuscular Volume 88.7 fl (78.0-98.0); Platelet Count 65 10x3/uL (130-400); RBC Distribution Width 13.6 % (11.5-14.5); Red Blood Cell (RBC) Count 3.61 mill/uL (4.70-6.10); White Blood Cell (WBC) Count 9.6 10x3/uL (4.8-10.8)
[2022-12-17 07:59] LABS: Anion Gap 11 mmol/L (10-20); BUN (Urea Nitrogen) 22 mg/dL (8.4-25.7); Calc. Creatinine Clearance 80 mL/min (70-130); Calcium 8.5 mg/dL (7.8-10.44); Carbon Dioxide 24 mmol/L (23-31); Chloride 100 mmol/L (98-107); Estimated GFR 101; Glucose 120 mg/dL (80-115); Potassium 3.9 mmol/L (3.5-5.1); Sodium 131 mmol/L (136-145)
[2022-12-17] MEDS: Tamsulosin HCl 0.4 MG CAP PO SCH (09:11)
[2022-12-17] MEDS: Dexamethasone 4 MG TAB PO SCH (09:11)
[2022-12-17] MEDS: Aripiprazole 10 MG TAB PO SCH (09:11)
[2022-12-17] MEDS: Carvedilol 25 MG TAB PO SCH (09:12)
[2022-12-17] MEDS: Senokot S 8.6-50 MG TAB PO SCH ×2 (09:12→19:52)
[2022-12-17] MEDS: Rosuvastatin 20 MG TAB PO SCH (09:12)
[2022-12-17] MEDS: ALPRAZolam 0.5 MG TAB PO SCH (09:13)
[2022-12-17] MEDS: HYDROcodone/Acetaminophen 5/325 mg Tablet PO PRN (19:52)
[2022-12-17] MEDS: ALPRAZolam 1 MG TAB PO SCH (19:52)
[2022-12-18 07:15] LABS: Hemoglobin 11.7 g/dL (14.0-18.0); Mean Corpuscular HGB CONC 34.4 g/dL (32.0-36.0); Mean Corpuscular Hemoglobin 30.5 pg (27.0-31.0); Mean Corpuscular Volume 88.6 fl (78.0-98.0); RBC Distribution Width 13.8 % (11.5-14.5); Red Blood Cell (RBC) Count 3.82 mill/uL (4.70-6.10)
[2022-12-18] MEDS: Aripiprazole 10 MG TAB PO SCH (08:55)
[2022-12-18] MEDS: Dexamethasone 4 MG TAB PO SCH (08:55)
[2022-12-18] MEDS: Tamsulosin HCl 0.4 MG CAP PO SCH (08:55)
[2022-12-18] MEDS: ALPRAZolam 0.5 MG TAB PO SCH (08:56)
[2022-12-18] MEDS: Senokot S 8.6-50 MG TAB PO SCH ×2 (08:56→20:22)
[2022-12-18] MEDS: Carvedilol 25 MG TAB PO SCH (08:56)
[2022-12-18] MEDS: Rosuvastatin 20 MG TAB PO SCH (08:56)
[2022-12-18 10:13] LABS: #Lymphocytes 1.2 thou/uL (1.20-3.40); #Monocytes 0.8 thou/uL (0.11-0.59); %Eosinophils 0.1 % (0.0-10.0); %Lymphocytes 11.9 % (21.0-51.0); %Monocytes 7.9 % (0.0-10.0); %Neutrophils 79.9 % (42.0-75.0); Platelet Count 91 10x3/uL (130-400); Platelet Morphology Comment Appears Decreased
[2022-12-18] MEDS: ALPRAZolam 1 MG TAB PO SCH (20:22)
[2022-12-18] MEDS: HYDROcodone/Acetaminophen 5/325 mg Tablet PO PRN (20:22)
[2022-12-19 06:56] LABS: #Lymphocytes 1.4 thou/uL (1.20-3.40); #Monocytes 1.5 thou/uL (0.11-0.59); #Neutrophils 10.6 thou/uL (1.40-6.50); %Basophils 0.1 % (0.0-1.0); %Eosinophils 0.2 % (0.0-10.0); %Lymphocytes 10.6 % (21.0-51.0); %Monocytes 10.7 % (0.0-10.0); %Neutrophils 78.4 % (42.0-75.0); Hemoglobin 12.8 g/dL (14.0-18.0); Mean Corpuscular HGB CONC 33.6 g/dL (32.0-36.0); Mean Corpuscular Hemoglobin 29.6 pg (27.0-31.0); Mean Corpuscular Volume 88.1 fl (78.0-98.0); Mean Platelet Volume 9.8 fL (7.4-10.4); Platelet Count 125 10x3/uL (130-400); RBC Distribution Width 13.7 % (11.5-14.5); Red Blood Cell (RBC) Count 4.33 mill/uL (4.70-6.10); White Blood Cell (WBC) Count 13.5 10x3/uL (4.8-10.8)
[2022-12-19] MEDS: ALPRAZolam 0.5 MG TAB PO SCH (09:20)
[2022-12-19] MEDS: Aripiprazole 10 MG TAB PO SCH (09:20)
[2022-12-19] MEDS: Senokot S 8.6-50 MG TAB PO SCH (09:21)
[2022-12-19] MEDS: Dexamethasone 4 MG TAB PO SCH (09:21)
[2022-12-19] MEDS: Rosuvastatin 20 MG TAB PO SCH (09:21)
[2022-12-19] MEDS: Carvedilol 25 MG TAB PO SCH (09:21)
[2022-12-19] MEDS: Tamsulosin HCl 0.4 MG CAP PO SCH (09:21)
[2022-12-19 15:46] VITALS: BP 128/80; TEMP 98.9
== END 2022-12-19 19:50 | DRG 813 ==
LOC: ERS 18:04 → ERHOLD 21:33 → T4-B 12-14 02:43
PROVIDERS: ADMIT Internal Medicine; ATTEND Internal Medicine
PROC: 6A550Z2 Pheresis of Platelets, Single (ICD-10-PCS; principal; 2022-12-13)
PROC: 3E0334Z Introduction of Serum, Toxoid and Vaccine into Peripheral Vein, Percutaneous Approach (ICD-10-PCS; 2022-12-13)
DX: D69.3 Immune thrombocytopenic purpura (principal); E87.1 Hypo-osmolality and hyponatremia; Z20.822 Contact with and (suspected) exposure to COVID-19; G40.909 Epilepsy, unspecified, not intractable, without status epilepticus; E11.9 Type 2 diabetes mellitus without complications; I10 Essential (primary) hypertension; K21.9 Gastro-esophageal reflux disease without esophagitis; K59.00 Constipation, unspecified; N40.1 Benign prostatic hyperplasia with lower urinary tract symptoms; R33.8 Other retention of urine; F41.9 Anxiety disorder, unspecified; E78.5 Hyperlipidemia, unspecified; Z88.1 Allergy status to other antibiotic agents; Z88.0 Allergy status to penicillin; Z88.8 Allergy status to other drugs, medicaments and biological substances; Z87.440 Personal history of urinary (tract) infections; Z79.899 Other long term (current) drug therapy; Z90.49 Acquired absence of other specified parts of digestive tract; Z83.3 Family history of diabetes mellitus
CPT/HCPCS: 36415; 36416; 36430; 51701; 74176; 80048; 80053; 81003; 82140; 82550; 83010; 83615; 84484; 85025; 85046; 85049; 85240; 85250; 85300; 85362; 85379; 85384; 85598; 85610; 85613; 85730; 86146; 86147; 86850; 86880; 86900; 86901; 96374; J1100; J1459; J2796; J8540; P9035; U0002

== ENCOUNTER 2025-06-29 17:01 | Inpatient (IN) | payer MEDICARE ==
[2025-06-29 17:43] LABS: #Basophils 0.03 10x3/uL (0.0-0.2); #Eosinophils Less than 0.03 10x3/uL (0.0-0.7); #Monocytes 1.14 10x3/uL (0.11-0.59); #Neutrophils 11.72 10x3/uL (1.40-6.50); %Basophils 0.2 % (0.0-1.0); %Eosinophils 0.0 % (0.0-10.0); %Lymphocytes 7.2 % (21.0-51.0); %Monocytes 8.1 % (0.0-10.0); %Neutrophils 83.7 % (42.0-75.0); Hematocrit 40.0 % (42.0-52.0); Hemoglobin 13.5 g/dL (14.0-18.0); Mean Corpuscular Hemoglobin 29.6 pg (27.0-31.0); Mean Corpuscular Volume 87.7 fL (78.0-98.0); Platelet Count 156 10x3/uL (130-400); Red Blood Cell (RBC) Count 4.56 mill/uL (4.70-6.10); White Blood Cell (WBC) Count 14.01 10x3/uL (4.8-10.8)
[2025-06-29] MEDS ORDERED: cefTRIAXone (ROCEPHIN) 2 GM VIAL ONE ×2 (18:00→18:05)
[2025-06-29 18:03] LABS: Troponin I 0.015 ng/mL (< 0.028)
[2025-06-29 18:24] LABS: ALT (SGPT) 8 U/L (Less than 45); AST (SGOT) 16 U/L (11-34); Albumin 2.6 g/dL (3.1-4.5); Alkaline Phosphatase 166 U/L (40-110); Anion Gap 21 mmol/L (10-20); BUN (Urea Nitrogen) 39 mg/dL (8.4-25.7); Bilirubin, Total 1.7 mg/dL (0.3-1.2); Calc. Creatinine Clearance 0 mL/min (70-130); Calcium 8.2 mg/dL (7.8-10.44); Carbon Dioxide 17 mmol/L (23-31); Chloride 105 mmol/L (98-107); Globulin 3.2 g/dL (2.4-3.5); Glucose 185 mg/dL (80-115); Potassium 3.5 mmol/L (3.5-5.1); Sodium 139 mmol/L (136-145)
[2025-06-29 18:39] LABS: Specific Gravity, Urine Less/Equal 1.005 (1.005-1.030)
[2025-06-29 18:44] LABS: Protein, Urine (Dipstick) Greater than 600 mg/dL (Neg-Trace)
[2025-06-29 18:45] LABS: Glucose, Urine (Dipstick) Negative (Negative); Leukocyte Large (Negative)
[2025-06-29 18:50] LABS: Bacteria/HPF 2+ HPF (None Seen)
[2025-06-29 18:52] LABS: CAUTI Indications for Culture Alt mental st,lethar; WBC/HPF 21-50 HPF (0-3)
[2025-06-29 18:53] LABS: Urine Culture Reflex Yes Yes
[2025-06-29] MEDS ORDERED: Ondansetron PF 4 MG/2 ML Vial IVP PRN (21:00)
[2025-06-29] MEDS ORDERED: Senokot S 8.6-50 MG TAB PO PRN (21:00)
[2025-06-29] MEDS ORDERED: Electrolyte Replacement Protocol 1 EACH FS PRN (21:00)
[2025-06-30 04:02] LABS: #Basophils Less than 0.03 10x3/uL (0.0-0.2); #Eosinophils Less than 0.03 10x3/uL (0.0-0.7); #Monocytes 0.85 10x3/uL (0.11-0.59); #Neutrophils 7.95 10x3/uL (1.40-6.50); %Basophils 0.2 % (0.0-1.0); %Eosinophils 0.0 % (0.0-10.0); %Lymphocytes 6.6 % (21.0-51.0); %Monocytes 8.9 % (0.0-10.0); %Neutrophils 83.4 % (42.0-75.0); Hematocrit 31.1 % (42.0-52.0); Hemoglobin 10.2 g/dL (14.0-18.0); Mean Corpuscular Hemoglobin 29.5 pg (27.0-31.0); Mean Corpuscular Volume 89.9 fL (78.0-98.0); Platelet Count 91 10x3/uL (130-400); Red Blood Cell (RBC) Count 3.46 mill/uL (4.70-6.10); White Blood Cell (WBC) Count 9.54 10x3/uL (4.8-10.8)
[2025-06-30 04:23] LABS: Burr Cells MODERATE= 6-15 cells HPF (0-1); Platelet Adequacy Comment Platelets Decreased
[2025-06-30 04:32] LABS: Anion Gap 13 mmol/L (10-20); BUN (Urea Nitrogen) 41 mg/dL (8.4-25.7); Calc. Creatinine Clearance 0 mL/min (70-130); Calcium 7.0 mg/dL (7.8-10.44); Carbon Dioxide 17 mmol/L (23-31); Chloride 112 mmol/L (98-107); Glucose 142 mg/dL (80-115); Magnesium 1.4 mg/dL (1.6-2.6); Potassium 3.2 mmol/L (3.5-5.1); Sodium 139 mmol/L (136-145)
[2025-06-30 05:58] VITALS: BMI 23.1
[2025-06-30] MEDS: Magnesium Sulfate In Water 4 GM in Premix 1 BAG IVPB SCH (06:10)
[2025-06-30] MEDS ORDERED: (Vortioxetine Hydrobromide [Trintellix] 20 MG Tablet) PO SCH (09:00)
[2025-06-30] MEDS: Famotidine 20 MG TAB PO SCH (09:07)
[2025-06-30] MEDS: cefTRIAXone\\ROCEPHIN 2 GM in Sodium Chloride 0.9% 100 ML IVPB SCH (17:54)
[2025-06-30] MEDS: PNEUMOC 20-VAL CONJ-DIP CRM/PF 0.5 ML SYRINGE IM ONE (17:54)
[2025-07-02] MEDS: Cholecalciferol (Vitamin D3) 400 UNITS TAB PO SCH (13:34)
[2025-07-02] MEDS: ALPRAZolam 0.25 MG TAB PO PRN (17:37)
[2025-07-02] MEDS: Melatonin 3 MG TAB PO PRN (23:49)
[2025-07-03 11:41] LABS: #Basophils Less than 0.03 10x3/uL (0.0-0.2); #Eosinophils 0.26 10x3/uL (0.0-0.7); #Monocytes 0.82 10x3/uL (0.11-0.59); #Neutrophils 6.69 10x3/uL (1.40-6.50); %Basophils 0.2 % (0.0-1.0); %Eosinophils 2.9 % (0.0-10.0); %Lymphocytes 10.5 % (21.0-51.0); %Monocytes 9.2 % (0.0-10.0); %Neutrophils 74.9 % (42.0-75.0); Hematocrit 30.8 % (42.0-52.0); Hemoglobin 10.2 g/dL (14.0-18.0); Mean Corpuscular Hemoglobin 29.4 pg (27.0-31.0); Mean Corpuscular Volume 88.8 fL (78.0-98.0); Platelet Count 77 10x3/uL (130-400); Red Blood Cell (RBC) Count 3.47 mill/uL (4.70-6.10); White Blood Cell (WBC) Count 8.94 10x3/uL (4.8-10.8)
[2025-07-03 12:17] LABS: ALT (SGPT) 11 U/L (Less than 45); AST (SGOT) 25 U/L (11-34); Albumin 1.8 g/dL (3.1-4.5); Alkaline Phosphatase 107 U/L (40-110); Anion Gap 10 mmol/L (10-20); BUN (Urea Nitrogen) 10 mg/dL (8.4-25.7); Bilirubin, Total 0.6 mg/dL (0.3-1.2); Calc. Creatinine Clearance 91 mL/min (70-130); Calcium 6.9 mg/dL (7.8-10.44); Carbon Dioxide 22 mmol/L (23-31); Chloride 111 mmol/L (98-107); Globulin 2.2 g/dL (2.4-3.5); Glucose 124 mg/dL (80-115); Potassium 2.4 mmol/L (3.5-5.1); Sodium 141 mmol/L (136-145)
[2025-07-04 05:27] LABS: #Basophils 0.03 10x3/uL (0.0-0.2); #Eosinophils 0.35 10x3/uL (0.0-0.7); #Monocytes 0.91 10x3/uL (0.11-0.59); #Neutrophils 7.95 10x3/uL (1.40-6.50); %Basophils 0.3 % (0.0-1.0); %Eosinophils 3.3 % (0.0-10.0); %Lymphocytes 11.3 % (21.0-51.0); %Monocytes 8.5 % (0.0-10.0); %Neutrophils 74.3 % (42.0-75.0); Hematocrit 34.3 % (42.0-52.0); Hemoglobin 11.2 g/dL (14.0-18.0); Mean Corpuscular Hemoglobin 29.1 pg (27.0-31.0); Mean Corpuscular Volume 89.1 fL (78.0-98.0); Platelet Count 98 10x3/uL (130-400); Red Blood Cell (RBC) Count 3.85 mill/uL (4.70-6.10); White Blood Cell (WBC) Count 10.70 10x3/uL (4.8-10.8)
[2025-07-04 05:42] LABS: Anion Gap 10 mmol/L (10-20); BUN (Urea Nitrogen) 7 mg/dL (8.4-25.7); Calc. Creatinine Clearance 96 mL/min (70-130); Calcium 7.1 mg/dL (7.8-10.44); Carbon Dioxide 21 mmol/L (23-31); Chloride 113 mmol/L (98-107); Glucose 148 mg/dL (80-115); Potassium 3.0 mmol/L (3.5-5.1); Sodium 141 mmol/L (136-145)
[2025-07-05] MEDS: Nystatin Powder 15 GM BOT TOP PRN (00:29)
[2025-07-05] MEDS: Acetaminophen 325 MG TAB PO PRN (08:14)
[2025-07-05 11:08] LABS: #Basophils Less than 0.03 10x3/uL (0.0-0.2); #Eosinophils 0.30 10x3/uL (0.0-0.7); #Monocytes 0.78 10x3/uL (0.11-0.59); #Neutrophils 7.70 10x3/uL (1.40-6.50); %Basophils 0.2 % (0.0-1.0); %Eosinophils 3.0 % (0.0-10.0); %Lymphocytes 11.3 % (21.0-51.0); %Monocytes 7.7 % (0.0-10.0); %Neutrophils 76.0 % (42.0-75.0); Hematocrit 32.8 % (42.0-52.0); Hemoglobin 10.7 g/dL (14.0-18.0); Mean Corpuscular Hemoglobin 29.2 pg (27.0-31.0); Mean Corpuscular Volume 89.6 fL (78.0-98.0); Platelet Count 95 10x3/uL (130-400); Red Blood Cell (RBC) Count 3.66 mill/uL (4.70-6.10); White Blood Cell (WBC) Count 10.12 10x3/uL (4.8-10.8)
[2025-07-05 11:39] LABS: Anion Gap 9 mmol/L (10-20); BUN (Urea Nitrogen) 6 mg/dL (8.4-25.7); Calc. Creatinine Clearance 100 mL/min (70-130); Calcium 7.4 mg/dL (7.8-10.44); Carbon Dioxide 19 mmol/L (23-31); Chloride 116 mmol/L (98-107); Glucose 145 mg/dL (80-115); Potassium 3.2 mmol/L (3.5-5.1); Sodium 141 mmol/L (136-145)
[2025-07-05 16:11] VITALS: BP 108/73; TEMP 98.8
== END 2025-07-05 16:19 | disposition home or self-care (01) | DRG 698 ==
LOC: ERS 17:01 → SURG A 21:07
PROVIDERS: ADMIT Student in an Organized Health Care Education/Training Program; ATTEND Internal Medicine
DX: T83.511A Infection and inflammatory reaction due to indwelling urethral catheter, initial encounter (principal); A41.9 Sepsis, unspecified organism; G93.41 Metabolic encephalopathy; R65.20 Severe sepsis without septic shock; N17.9 Acute kidney failure, unspecified; E87.20 Acidosis, unspecified; N39.0 Urinary tract infection, site not specified; Z79.899 Other long term (current) drug therapy; Z88.0 Allergy status to penicillin; N40.0 Benign prostatic hyperplasia without lower urinary tract symptoms; K21.9 Gastro-esophageal reflux disease without esophagitis; F32.A Depression, unspecified; E87.6 Hypokalemia; E11.9 Type 2 diabetes mellitus without complications
CPT/HCPCS: 36415; 71045; 80048; 80053; 81001; 83605; 83735; 84484; 85025; 87040; 87077; 87086; 87149; 87186; 93005; 96365; 96374; 97139; J0696; J2270; J3010; J3475; J7120

== ENCOUNTER 2025-07-10 13:46 | Inpatient (IN) | payer MEDICARE ==
[~2025-07-10 13:46] MED LIST: Iopamidol-370 76% 500 ML MDV (1 ML CHARGE) ONE
[2025-07-10] MEDS ORDERED: Cefepime 2 GM VIAL ONE (15:03)
[2025-07-10 15:33] LABS: #Basophils Less than 0.03 10x3/uL (0.0-0.2); #Eosinophils Less than 0.03 10x3/uL (0.0-0.7); #Monocytes 0.81 10x3/uL (0.11-0.59); #Neutrophils 12.75 10x3/uL (1.40-6.50); %Basophils 0.1 % (0.0-1.0); %Eosinophils 0.1 % (0.0-10.0); %Lymphocytes 6.0 % (21.0-51.0); %Monocytes 5.6 % (0.0-10.0); %Neutrophils 87.7 % (42.0-75.0); Hematocrit 31.8 % (42.0-52.0); Hemoglobin 10.5 g/dL (14.0-18.0); Mean Corpuscular Hemoglobin 29.2 pg (27.0-31.0); Mean Corpuscular Volume 88.6 fL (78.0-98.0); Platelet Count 91 10x3/uL (130-400); Red Blood Cell (RBC) Count 3.59 mill/uL (4.70-6.10); White Blood Cell (WBC) Count 14.55 10x3/uL (4.8-10.8)
[2025-07-10 15:46] LABS: ALT (SGPT) 15 U/L (Less than 45); AST (SGOT) 28 U/L (11-34); Acetaminophen Less than 10 mcg/mL (Less than 10); Albumin 2.4 g/dL (3.1-4.5); Alkaline Phosphatase 147 U/L (40-110); Anion Gap 18 mmol/L (10-20); BUN (Urea Nitrogen) 13 mg/dL (8.4-25.7); Bilirubin, Total 1.8 mg/dL (0.3-1.2); Calc. Creatinine Clearance 0 mL/min (70-130); Calcium 7.4 mg/dL (7.8-10.44); Carbon Dioxide 14 mmol/L (23-31); Chloride 114 mmol/L (98-107); Globulin 2.7 g/dL (2.4-3.5); Glucose 95 mg/dL (80-115); Magnesium 1.4 mg/dL (1.6-2.6); Potassium 4.1 mmol/L (3.5-5.1); Salicylate Less than 8.0 mg/dL (Less than 8.0); Sodium 142 mmol/L (136-145)
[2025-07-10 16:40] LABS: Base Excess -10.4 mEq/L (-2.0 to +3.0); Calcium, Ionized (venous) 0.97 mmol/L (1.16-1.32); Chloride (VBG) 113 mmol/L (98-106); Hematocrit-VBG 27 % (42.0-52.0); Hemoglobin (Hb) 9.1 g/dL (12.6-17.4); Potassium (VBG) 4.38 mmol/L (3.70-5.30); Sodium 138 mmol/L (133-146)
[2025-07-10 17:34] LABS: Cocaine Metabolite Screen Negative (Negative); THC/Cannabinoid Screen Negative (Negative); Tricyclic Screen Negative (Negative)
[2025-07-10] MEDS ORDERED: NOREPINEPHRINE 8 MG/250 ML-D5W 250 ML ONE (18:47)
[2025-07-10] MEDS ORDERED: Magnesium 2 GM/50 ML BAG (IN WATER) ONE (20:32)
[2025-07-10] MEDS: VANCOMYCIN 1.75 GM/350 ML Premix BAG IVPB SCH (23:30)
[2025-07-10] MEDS: cefTRIAXone\\ROCEPHIN 1 GM in Sodium Chloride 0.9% 100 ML IVPB SCH (23:47)
[2025-07-10] MEDS: Famotidine 20 MG TAB PO SCH (23:47)
[2025-07-11 00:42] VITALS: BMI 23.3
[2025-07-11] MEDS: Acetaminophen 325 MG TAB PO PRN (04:30)
[2025-07-11 05:10] LABS: Anion Gap 17 mmol/L (10-20); BUN (Urea Nitrogen) 16 mg/dL (8.4-25.7); Calc. Creatinine Clearance 77 mL/min (70-130); Calcium 6.7 mg/dL (7.8-10.44); Carbon Dioxide 11 mmol/L (23-31); Chloride 119 mmol/L (98-107); Glucose 180 mg/dL (80-115); Potassium 4.0 mmol/L (3.5-5.1); Sodium 143 mmol/L (136-145)
[2025-07-11] MEDS: Calcium Chloride 1 GM/10 ML Abboject SYRINGE IVP SCH (06:16)
[2025-07-11] MEDS: Sodium Bicarb 50 MEQ/50 ML Abboject 8.4% SYRINGE IVP SCH (06:16)
[2025-07-11 06:31] LABS: Magnesium 1.9 mg/dL (1.6-2.6)
[2025-07-11 06:34] LABS: #Basophils 0.03 10x3/uL (0.0-0.2); #Eosinophils Less than 0.03 10x3/uL (0.0-0.7); #Monocytes 0.98 10x3/uL (0.11-0.59); #Neutrophils 15.78 10x3/uL (1.40-6.50); %Basophils 0.2 % (0.0-1.0); %Eosinophils 0.1 % (0.0-10.0); %Lymphocytes 7.0 % (21.0-51.0); %Monocytes 5.4 % (0.0-10.0); %Neutrophils 86.7 % (42.0-75.0); Hematocrit 28.2 % (42.0-52.0); Hemoglobin 9.0 g/dL (14.0-18.0); Mean Corpuscular Hemoglobin 29.0 pg (27.0-31.0); Mean Corpuscular Volume 91.0 fL (78.0-98.0); Platelet Count 111 10x3/uL (130-400); Red Blood Cell (RBC) Count 3.10 mill/uL (4.70-6.10); White Blood Cell (WBC) Count 18.19 10x3/uL (4.8-10.8)
[2025-07-11 07:07] LABS: RBC/HPF Greater than 50 HPF (0-3); WBC/HPF Greater than 50 HPF (0-3)
[2025-07-11 07:08] LABS: Bacteria/HPF 1+ HPF (None Seen)
[2025-07-11] MEDS: Enoxaparin 40 MG (0.4 mL) SYRINGE SC SCH (07:46)
[2025-07-11] MEDS: Pantoprazole 40 MG DR.TAB PO SCH (07:47)
[2025-07-11] MEDS: Mupirocin 1 GM TUBE TP SCH (07:59)
[2025-07-11] MEDS: NOREPINEPHRINE 8 MG/250 ML-D5W 250 ML IVPB SCH (08:28)
[2025-07-11] MEDS ORDERED: Non-Formulary Item 1 EACH (Vortioxetine Hydrobromide [Trintellix] 20 MG Tablet) PO SCH (09:00)
[2025-07-12 04:27] LABS: #Basophils Less than 0.03 10x3/uL (0.0-0.2); #Eosinophils 0.05 10x3/uL (0.0-0.7); #Monocytes 0.48 10x3/uL (0.11-0.59); #Neutrophils 8.85 10x3/uL (1.40-6.50); %Basophils 0.1 % (0.0-1.0); %Eosinophils 0.5 % (0.0-10.0); %Lymphocytes 9.6 % (21.0-51.0); %Monocytes 4.6 % (0.0-10.0); %Neutrophils 84.5 % (42.0-75.0); Hematocrit 25.6 % (42.0-52.0); Hemoglobin 8.3 g/dL (14.0-18.0); Mean Corpuscular Hemoglobin 28.8 pg (27.0-31.0); Mean Corpuscular Volume 88.9 fL (78.0-98.0); Platelet Count 91 10x3/uL (130-400); Red Blood Cell (RBC) Count 2.88 mill/uL (4.70-6.10); White Blood Cell (WBC) Count 10.46 10x3/uL (4.8-10.8)
[2025-07-12 04:50] LABS: Anion Gap 14 mmol/L (10-20); BUN (Urea Nitrogen) 13 mg/dL (8.4-25.7); Calc. Creatinine Clearance 95 mL/min (70-130); Calcium 6.9 mg/dL (7.8-10.44); Carbon Dioxide 17 mmol/L (23-31); Chloride 119 mmol/L (98-107); Glucose 100 mg/dL (80-115); Magnesium 1.7 mg/dL (1.6-2.6); Potassium 3.0 mmol/L (3.5-5.1); Sodium 147 mmol/L (136-145)
[2025-07-12] MEDS: Potassium Chloride 10 MEQ in Premix 1 BAG IVPB SCH (09:31)
[2025-07-12] MEDS: Magnesium 2 GM/50 ML(in water) 2 GM in Premix 1 BAG IVPB SCH (09:31)
[2025-07-12 22:06] LABS: #Basophils Less than 0.03 10x3/uL (0.0-0.2); #Eosinophils Less than 0.03 10x3/uL (0.0-0.7); #Monocytes 0.30 10x3/uL (0.11-0.59); #Neutrophils 9.23 10x3/uL (1.40-6.50); %Basophils 0.1 % (0.0-1.0); %Eosinophils 0.1 % (0.0-10.0); %Lymphocytes 6.1 % (21.0-51.0); %Monocytes 2.9 % (0.0-10.0); %Neutrophils 90.1 % (42.0-75.0); Hematocrit 28.5 % (42.0-52.0); Hemoglobin 9.0 g/dL (14.0-18.0); Mean Corpuscular Hemoglobin 29.1 pg (27.0-31.0); Mean Corpuscular Volume 92.2 fL (78.0-98.0); Platelet Count 75 10x3/uL (130-400); Red Blood Cell (RBC) Count 3.09 mill/uL (4.70-6.10); White Blood Cell (WBC) Count 10.25 10x3/uL (4.8-10.8)
[2025-07-12 22:12] LABS: Anion Gap 20 mmol/L (10-20); BUN (Urea Nitrogen) 10 mg/dL (8.4-25.7); Calc. Creatinine Clearance 99 mL/min (70-130); Calcium 7.0 mg/dL (7.8-10.44); Carbon Dioxide 15 mmol/L (23-31); Chloride 117 mmol/L (98-107); Glucose 57 mg/dL (80-115); Magnesium 2.0 mg/dL (1.6-2.6); Potassium 3.1 mmol/L (3.5-5.1); Sodium 149 mmol/L (136-145)
[2025-07-12 22:22] LABS: Base Excess -8.0 mEq/L (-2.0 to +3.0); Calcium, Ionized (venous) 0.98 mmol/L (1.16-1.32); Chloride (VBG) 114 mmol/L (98-106); Hematocrit-VBG 30 % (42.0-52.0); Hemoglobin (Hb) 10.2 g/dL (12.6-17.4); Potassium (VBG) 3.03 mmol/L (3.70-5.30); Sodium 143 mmol/L (133-146)
[2025-07-12 22:25] LABS: Actual Bicarbonate (HCO3v) 14.2 mEq/L (22-28)
[2025-07-12 22:27] LABS: Burr Cells SLIGHT = 2-5 cells (100X) (0-1/hpf); Plasma Cells 0 % (0-0); Platelet Adequacy Comment Appears Decreased
[2025-07-12] MEDS: Potassium Chloride 20 MEQ in Premix 1 BAG IVPB SCH (23:31)
[2025-07-13 06:21] LABS: Hematocrit 24.7 % (42.0-52.0); Hemoglobin 8.0 g/dL (14.0-18.0); Mean Corpuscular Hemoglobin 28.8 pg (27.0-31.0); Mean Corpuscular Volume 88.8 fL (78.0-98.0); Platelet Count 57 10x3/uL (130-400); Red Blood Cell (RBC) Count 2.78 mill/uL (4.70-6.10); White Blood Cell (WBC) Count 7.89 10x3/uL (4.8-10.8)
[2025-07-13 06:28] LABS: ALT (SGPT) 14 U/L (Less than 45); AST (SGOT) 27 U/L (11-34); Albumin 1.7 g/dL (3.1-4.5); Alkaline Phosphatase 109 U/L (40-110); Anion Gap 15 mmol/L (10-20); BUN (Urea Nitrogen) 11 mg/dL (8.4-25.7); Bilirubin, Total 0.8 mg/dL (0.3-1.2); Calc. Creatinine Clearance 95 mL/min (70-130); Calcium 7.0 mg/dL (7.8-10.44); Carbon Dioxide 16 mmol/L (23-31); Chloride 120 mmol/L (98-107); Globulin 2.3 g/dL (2.4-3.5); Glucose 85 mg/dL (80-115); Magnesium 1.8 mg/dL (1.6-2.6); Potassium 3.7 mmol/L (3.5-5.1); Sodium 147 mmol/L (136-145)
[2025-07-13 06:54] LABS: Platelet Adequacy Comment Platelets Decreased; Smudge Cells 5.0 %
[2025-07-13] MEDS: VANCOMYCIN 1.75 GM/350 ML Premix BAG IVPB SCH (17:08)
[2025-07-14] MEDS: Vancomycin 1 GM in Premix 1 BAG IVPB SCH ×2 (05:53→20:59)
[2025-07-14 06:49] LABS: Vancomycin, Random 24.6 ug/mL (See Comment)
[2025-07-14 06:57] LABS: ALT (SGPT) 12 U/L (Less than 45); AST (SGOT) 35 U/L (11-34); Albumin 1.8 g/dL (3.1-4.5); Alkaline Phosphatase 116 U/L (40-110); Anion Gap 12 mmol/L (10-20); BUN (Urea Nitrogen) 10 mg/dL (8.4-25.7); Bilirubin, Total 0.8 mg/dL (0.3-1.2); Calc. Creatinine Clearance 101 mL/min (70-130); Calcium 6.8 mg/dL (7.8-10.44); Carbon Dioxide 15 mmol/L (23-31); Chloride 125 mmol/L (98-107); Globulin 2.4 g/dL (2.4-3.5); Glucose 74 mg/dL (80-115); Magnesium 1.7 mg/dL (1.6-2.6); Potassium 3.0 mmol/L (3.5-5.1); Sodium 149 mmol/L (136-145)
[2025-07-14] MEDS: Pantoprazole 40 MG VIAL IVP SCH (10:52)
[2025-07-14 11:02] LABS: #Basophils Less than 0.03 10x3/uL (0.0-0.2); #Eosinophils 0.04 10x3/uL (0.0-0.7); #Monocytes 0.14 10x3/uL (0.11-0.59); #Neutrophils 3.84 10x3/uL (1.40-6.50); %Basophils 0.2 % (0.0-1.0); %Eosinophils 0.9 % (0.0-10.0); %Lymphocytes 9.1 % (21.0-51.0); %Monocytes 3.1 % (0.0-10.0); %Neutrophils 85.1 % (42.0-75.0); Hematocrit 26.7 % (42.0-52.0); Hemoglobin 8.3 g/dL (14.0-18.0); Mean Corpuscular Hemoglobin 28.8 pg (27.0-31.0); Mean Corpuscular Volume 92.7 fL (78.0-98.0); Platelet Count 51 10x3/uL (130-400); Red Blood Cell (RBC) Count 2.88 mill/uL (4.70-6.10); White Blood Cell (WBC) Count 4.51 10x3/uL (4.8-10.8)
[2025-07-14] MEDS: Dexamethasone Sod Phosphate 40 MG in Sodium Chloride 0.9% 50 ML IVPB SCH (11:16)
[2025-07-14] MEDS: Potassium Phosphate 30 MMOL in Sodium Chloride 0.9% 250 ML 250 ML IVPB SCH (13:49)
[2025-07-14] MEDS: Magnesium 2 GM/50 ML(in water) 2 GM in Premix 1 BAG IVPB SCH (13:49)
[2025-07-14 15:00] VITALS: BMI 23.6
[2025-07-14 17:14] LABS: Anisocytosis SLIGHT = 6-15 cells HPF (0-5); Burr Cells MODERATE= 6-15 cells HPF (0-1); Nucleated RBC (Manual Ct) 1 % (0); Platelet Adequacy Comment Significant Decrease; Poikilocytosis SLIGHT = 6-15 cells HPF (0-5); Polychromasia SLIGHT = 2-3 cells HPF (0-2); Schistocytes SLIGHT = 2-5 cells HPF (0-1); Smudge Cells 7.0 %; Toxic Granulation SLIGHT
[2025-07-14 19:28] LABS: Hematocrit 27.9 % (42.0-52.0); Hemoglobin 9.3 g/dL (14.0-18.0); Mean Corpuscular Hemoglobin 29.6 pg (27.0-31.0); Mean Corpuscular Volume 88.9 fL (78.0-98.0); Platelet Count 33 10x3/uL (130-400); Red Blood Cell (RBC) Count 3.14 mill/uL (4.70-6.10); White Blood Cell (WBC) Count 4.50 10x3/uL (4.8-10.8)
[2025-07-14 19:52] LABS: Burr Cells MARKED = >16 cells HPF (0-1); Platelet Adequacy Comment Significant Decrease; Poikilocytosis MARKED = >30 cells HPF (0-5); Polychromasia MODERATE = 3-4 cells HPF (0-2); Smudge Cells 15.5 %; Toxic Granulation MODERATE
[2025-07-15 05:35] LABS: Hematocrit 28.9 % (42.0-52.0); Hemoglobin 9.1 g/dL (14.0-18.0); Mean Corpuscular Hemoglobin 28.4 pg (27.0-31.0); Mean Corpuscular Volume 90.3 fL (78.0-98.0); Platelet Count 53 10x3/uL (130-400); Red Blood Cell (RBC) Count 3.20 mill/uL (4.70-6.10); White Blood Cell (WBC) Count 4.21 10x3/uL (4.8-10.8)
[2025-07-15 05:55] LABS: Anion Gap 13 mmol/L (10-20); BUN (Urea Nitrogen) 9 mg/dL (8.4-25.7); Calc. Creatinine Clearance 95 mL/min (70-130); Calcium 6.3 mg/dL (7.8-10.44); Carbon Dioxide 15 mmol/L (23-31); Chloride 127 mmol/L (98-107); Glucose 79 mg/dL (80-115); Potassium 2.7 mmol/L (3.5-5.1); Sodium 152 mmol/L (136-145)
[2025-07-15 06:48] LABS: Anisocytosis MODERATE=16-30 cells HPF (0-5); Burr Cells MODERATE= 6-15 cells HPF (0-1); Platelet Adequacy Comment Platelets Decreased; Smudge Cells 10.8 %
[2025-07-15] MEDS ORDERED: Dexamethasone Sod Phosphate 40 MG in Sodium Chloride 0.9% 50 ML IVPB SCH (09:00)
[2025-07-15] MEDS: Potassium Chloride 40 MEQ in Sodium Chloride 0.9% 250 ML 250 ML IVPB SCH (10:56)
[2025-07-15 13:41] LABS: Anion Gap 14 mmol/L (10-20); BUN (Urea Nitrogen) 8 mg/dL (8.4-25.7); Calc. Creatinine Clearance 99 mL/min (70-130); Calcium 6.7 mg/dL (7.8-10.44); Carbon Dioxide 15 mmol/L (23-31); Chloride 126 mmol/L (98-107); Glucose 77 mg/dL (80-115); Potassium 2.9 mmol/L (3.5-5.1); Sodium 152 mmol/L (136-145)
[2025-07-15] MEDS: Linezolid 600 MG in Premix 1 BAG IVPB SCH (21:11)
[2025-07-16 03:36] LABS: Actual Bicarbonate (HCO3a) 16.2 mEq/L (22-28); Base Excess (BEa) -7.4 mEq/L (-2.0 to +3.0); CO2 Tension 26.5 mmHg (35.0-45.0); Calcium, Ionized (arterial) 1.06 mmol/L (1.12-1.30); Hematocrit-ABG 27 % (42.0-52.0); Hemoglobin (Hb) 9.3 g/dL (14.0-18.0); O2 Tension (PaO2), arterial 62.4 mmHg (> 80.0); Potassium - ABG Lab 3.38 mmol/L (3.70-5.30); pH, Arterial 7.405 (7.35-7.45)
[2025-07-16 03:37] LABS: ALV-art Gradient 617.475 mmHg (0-20); Puncture Site Right Brachial art
[2025-07-16 04:25] VITALS: BP 111/74
[2025-07-16] MEDS: NOREPINEPHRINE 8 MG/250 ML-D5W 250 ML IVPB SCH (05:00)
[2025-07-16 07:03] LABS: ALT (SGPT) 11 U/L (Less than 45); AST (SGOT) 28 U/L (11-34); Albumin 1.4 g/dL (3.1-4.5); Alkaline Phosphatase 89 U/L (40-110); Anion Gap 14 mmol/L (10-20); BUN (Urea Nitrogen) 13 mg/dL (8.4-25.7); Bilirubin, Total 0.7 mg/dL (0.3-1.2); Calc. Creatinine Clearance 85 mL/min (70-130); Calcium 6.6 mg/dL (7.8-10.44); Carbon Dioxide 14 mmol/L (23-31); Chloride 123 mmol/L (98-107); Globulin 2.0 g/dL (2.4-3.5); Glucose 183 mg/dL (80-115); Potassium 3.7 mmol/L (3.5-5.1); Sodium 147 mmol/L (136-145)
[2025-07-16 07:23] LABS: Hematocrit 26.5 % (42.0-52.0); Hemoglobin 8.4 g/dL (14.0-18.0); Mean Corpuscular Hemoglobin 28.4 pg (27.0-31.0); Mean Corpuscular Volume 89.5 fL (78.0-98.0); Platelet Count 62 10x3/uL (130-400); Red Blood Cell (RBC) Count 2.96 mill/uL (4.70-6.10); White Blood Cell (WBC) Count 6.16 10x3/uL (4.8-10.8)
[2025-07-16 07:46] LABS: Burr Cells MODERATE= 6-15 cells HPF (0-1); Macrocytosis SLIGHT = 6-15 cells HPF (0-5); Nucleated RBC (Manual Ct) 1 % (0); Ovalocytes SLIGHT = 2-5 cells HPF (0-1); Platelet Adequacy Comment Platelets Decreased; Poikilocytosis MARKED = >30 cells HPF (0-5); Polychromasia MODERATE = 3-4 cells HPF (0-2)
[2025-07-16] MEDS: Furosemide 40 MG (4 mL) VIAL SLOW IVP SCH (09:36)
[2025-07-16 15:13] LABS: Heparin-Induced Ab (HITA) 0.032 OD (0.000-0.400)
[2025-07-16] MEDS ORDERED: Dextrose 50% Abboject 50 ML SYRINGE SLOW IVP PRN (19:45)
[2025-07-16] MEDS ORDERED: Glucagon 1 MG/ML KIT IM PRN (19:45)
[2025-07-16 22:02] LABS: Albumin 1.6 g/dL (3.1-4.5); Anion Gap 18 mmol/L (10-20); BUN (Urea Nitrogen) 15 mg/dL (8.4-25.7); BUN/Creatinine Ratio 14.56; Calc. Creatinine Clearance 67 mL/min (70-130); Calcium 7.4 mg/dL (7.8-10.44); Carbon Dioxide 12 mmol/L (23-31); Chloride 121 mmol/L (98-107); Glucose 294 mg/dL (80-115); Magnesium 1.5 mg/dL (1.6-2.6); Potassium 4.2 mmol/L (3.5-5.1); Sodium 147 mmol/L (136-145)
[2025-07-17] MEDS: Magnesium 2 GM/50 ML(in water) 2 GM in Premix 1 BAG IVPB SCH (00:44)
[2025-07-17 04:12] LABS: Anion Gap 22 mmol/L (10-20); BUN (Urea Nitrogen) 14 mg/dL (8.4-25.7); Calc. Creatinine Clearance 71 mL/min (70-130); Calcium 7.5 mg/dL (7.8-10.44); Carbon Dioxide 10 mmol/L (23-31); Chloride 120 mmol/L (98-107); Glucose 174 mg/dL (80-115); Potassium 4.5 mmol/L (3.5-5.1); Sodium 147 mmol/L (136-145)
[2025-07-17 04:13] LABS: CRP, High Sensitivity at Bryan 13.97 mg/dL (< or = 0.5)
[2025-07-17 04:54] LABS: Hematocrit 29.5 % (42.0-52.0); Hemoglobin 8.9 g/dL (14.0-18.0); Mean Corpuscular Hemoglobin 28.1 pg (27.0-31.0); Mean Corpuscular Volume 93.1 fL (78.0-98.0); Platelet Count 67 10x3/uL (130-400); Red Blood Cell (RBC) Count 3.17 mill/uL (4.70-6.10); White Blood Cell (WBC) Count 10.09 10x3/uL (4.8-10.8)
[2025-07-17 07:05] LABS: Anisocytosis MODERATE=16-30 cells HPF (0-5); Burr Cells MODERATE= 6-15 cells HPF (0-1); Macrocytosis SLIGHT = 6-15 cells HPF (0-5); Nucleated RBC (Manual Ct) 1 % (0); Platelet Adequacy Comment Platelets Decreased; Polychromasia SLIGHT = 2-3 cells HPF (0-2); Smudge Cells 21.4 %
[2025-07-17 09:36] LABS: Actual Bicarbonate (HCO3v) 13.1 mEq/L (22-28)
[2025-07-17] MEDS: Furosemide 40 MG (4 mL) VIAL SLOW IVP SCH (10:06)
[2025-07-17 10:29] LABS: Magnesium 2.3 mg/dL (1.6-2.6)
[2025-07-17] MEDS ORDERED: Iopamidol 370 76% 100 ML VIAL ONE (10:29)
[2025-07-17 14:13] LABS: Hematocrit 28.1 % (42.0-52.0); Hemoglobin 8.8 g/dL (14.0-18.0); Mean Corpuscular Hemoglobin 28.5 pg (27.0-31.0); Mean Corpuscular Volume 90.9 fL (78.0-98.0); Platelet Count 50 10x3/uL (130-400); Red Blood Cell (RBC) Count 3.09 mill/uL (4.70-6.10); White Blood Cell (WBC) Count 7.85 10x3/uL (4.8-10.8)
[2025-07-17 14:32] LABS: ALT (SGPT) 14 U/L (Less than 45); AST (SGOT) 25 U/L (11-34); Albumin 1.8 g/dL (3.1-4.5); Alkaline Phosphatase 117 U/L (40-110); Anion Gap 22 mmol/L (10-20); BUN (Urea Nitrogen) 12 mg/dL (8.4-25.7); Bilirubin, Total 1.2 mg/dL (0.3-1.2); Calc. Creatinine Clearance 68 mL/min (70-130); Calcium 7.3 mg/dL (7.8-10.44); Carbon Dioxide 13 mmol/L (23-31); Chloride 113 mmol/L (98-107); Globulin 2.1 g/dL (2.4-3.5); Glucose 176 mg/dL (80-115); Potassium 4.0 mmol/L (3.5-5.1); Sodium 144 mmol/L (136-145)
[2025-07-17 14:40] LABS: Anisocytosis SLIGHT = 6-15 cells HPF (0-5); Burr Cells MODERATE= 6-15 cells HPF (0-1); Giant Platelets 1.0 % (0-5); Platelet Adequacy Comment Platelets Decreased; Poikilocytosis SLIGHT = 6-15 cells HPF (0-5); Polychromasia SLIGHT = 2-3 cells HPF (0-2)
[2025-07-17] MEDS: Furosemide 20 MG (2 mL) VIAL SLOW IVP SCH (21:24)
[2025-07-18 05:41] LABS: Hematocrit 23.6 % (42.0-52.0); Hemoglobin 7.8 g/dL (14.0-18.0); Mean Corpuscular Hemoglobin 28.5 pg (27.0-31.0); Mean Corpuscular Volume 86.1 fL (78.0-98.0); Platelet Count 38 10x3/uL (130-400); Red Blood Cell (RBC) Count 2.74 mill/uL (4.70-6.10); White Blood Cell (WBC) Count 6.38 10x3/uL (4.8-10.8)
[2025-07-18 05:48] LABS: ALT (SGPT) 14 U/L (Less than 45); AST (SGOT) 21 U/L (11-34); Albumin 1.6 g/dL (3.1-4.5); Alkaline Phosphatase 113 U/L (40-110); Anion Gap 21 mmol/L (10-20); BUN (Urea Nitrogen) 11 mg/dL (8.4-25.7); Bilirubin, Total 1.6 mg/dL (0.3-1.2); Calc. Creatinine Clearance 71 mL/min (70-130); Calcium 7.2 mg/dL (7.8-10.44); Carbon Dioxide 15 mmol/L (23-31); Chloride 111 mmol/L (98-107); Globulin 2.1 g/dL (2.4-3.5); Glucose 102 mg/dL (80-115); Potassium 3.4 mmol/L (3.5-5.1); Sodium 144 mmol/L (136-145)
[2025-07-18 08:17] VITALS: TEMP 98.9
[2025-07-18 08:54] LABS: Burr Cells MODERATE= 6-15 cells HPF (0-1); Platelet Adequacy Comment Platelets Decreased; Poikilocytosis SLIGHT = 6-15 cells HPF (0-5); Polychromasia SLIGHT = 2-3 cells HPF (0-2); Smudge Cells 30.7 %; Toxic Granulation SLIGHT
[2025-07-18] MEDS: Potassium Chloride 20 MEQ in Premix 1 BAG IVPB SCH (09:34)
[2025-07-18] MEDS ORDERED: Glycopyrrolate 0.4 MG/ 2 ML VIAL SLOW IVP PRN (10:50)
== END 2025-07-18 11:28 | disposition expired | DRG 871 ==
LOC: ERS 13:46 → ERHOLD 18:51 → CCU 22:01 → T4-B 07-12 15:19 → CCU 07-16 04:46
PROVIDERS: ADMIT Family Medicine; ATTEND Internal Medicine
PROC: 3E03329 Introduction of Other Anti-infective into Peripheral Vein, Percutaneous Approach (ICD-10-PCS; principal; 2025-07-10)
PROC: 3E033XZ Introduction of Vasopressor into Peripheral Vein, Percutaneous Approach (ICD-10-PCS; 2025-07-10)
PROC: 0T2BX0Z Change Drainage Device in Bladder, External Approach (ICD-10-PCS; 2025-07-10)
PROC: 02HV33Z Insertion of Infusion Device into Superior Vena Cava, Percutaneous Approach (ICD-10-PCS; 2025-07-10)
PROC: 4A02X4A Measurement of Cardiac Electrical Activity, Guidance, External Approach (ICD-10-PCS; 2025-07-10)
PROC: 3E04329 Introduction of Other Anti-infective into Central Vein, Percutaneous Approach (ICD-10-PCS; 2025-07-11)
PROC: 3E043XZ Introduction of Vasopressor into Central Vein, Percutaneous Approach (ICD-10-PCS; 2025-07-11)
PROC: 3E03328 Introduction of Oxazolidinones into Peripheral Vein, Percutaneous Approach (ICD-10-PCS; 2025-07-15)
PROC: 06HY33Z Insertion of Infusion Device into Lower Vein, Percutaneous Approach (ICD-10-PCS; 2025-07-16)
PROC: 4A033R1 Measurement of Arterial Saturation, Peripheral, Percutaneous Approach (ICD-10-PCS; 2025-07-16)
PROC: 5A0945A Assistance with Respiratory Ventilation, 24-96 Consecutive Hours, High Flow/Velocity Cannula (ICD-10-PCS; 2025-07-17)
DX: A41.81 Sepsis due to Enterococcus (principal); J69.0 Pneumonitis due to inhalation of food and vomit; R65.21 Severe sepsis with septic shock; J80 Acute respiratory distress syndrome; E87.0 Hyperosmolality and hypernatremia; E87.21 Acute metabolic acidosis; E44.0 Moderate protein-calorie malnutrition; N39.0 Urinary tract infection, site not specified; Z16.21 Resistance to vancomycin; Z66 Do not resuscitate; Z51.5 Encounter for palliative care; I10 Essential (primary) hypertension; K21.9 Gastro-esophageal reflux disease without esophagitis; E83.51 Hypocalcemia; E87.6 Hypokalemia; E83.39 Other disorders of phosphorus metabolism; R55 Syncope and collapse; D69.6 Thrombocytopenia, unspecified; G40.909 Epilepsy, unspecified, not intractable, without status epilepticus; E87.70 Fluid overload, unspecified; E83.42 Hypomagnesemia; R41.0 Disorientation, unspecified; F32.A Depression, unspecified; L89.159 Pressure ulcer of sacral region, unspecified stage; D63.8 Anemia in other chronic diseases classified elsewhere; R79.89 Other specified abnormal findings of blood chemistry; R57.1 Hypovolemic shock; E88.09 Other disorders of plasma-protein metabolism, not elsewhere classified; K74.60 Unspecified cirrhosis of liver; E11.9 Type 2 diabetes mellitus without complications; K52.9 Noninfective gastroenteritis and colitis, unspecified; R16.1 Splenomegaly, not elsewhere classified; N40.1 Benign prostatic hyperplasia with lower urinary tract symptoms; R33.8 Other retention of urine; Z86.73 Personal history of transient ischemic attack (TIA), and cerebral infarction without residual deficits; Z88.8 Allergy status to other drugs, medicaments and biological substances; Z88.0 Allergy status to penicillin; Z88.1 Allergy status to other antibiotic agents; Z90.49 Acquired absence of other specified parts of digestive tract; Z98.890 Other specified postprocedural states; Z68.24 Body mass index [BMI] 24.0-24.9, adult; Z79.899 Other long term (current) drug therapy; Z79.2 Long term (current) use of antibiotics
CPT/HCPCS: 36415; 36416; 36556; 36600; 51702; 70450; 71045; 71260; 71275; 74177; 80048; 80053; 80202; 80306; 80307; 81015; 82040; 82805; 83605; 83735; 83880; 84100; 84443; 84484; 85025; 85379; 86141; 86850; 86900; 86901; 87040; 87077; 87086; 87186; 93005; 93010; 94660; 96361; 96365; 96366; 96375; 97139; 99292; J0692; J0696; J1650; J1815; J1940; J2020; J2060; J2270; J2470; J3373; J3375; J3475; J3480; J7042; J7050; J7070; J7120; Q9967